=== PATIENT | male | born 1940 | race Caucasian/White ===

== ENCOUNTER → 2017-12-27 12:48 | Outpatient (CLI) | payer BC, MEDICARE, SELFPAY ==
--- NOTE | 2017-12-27 13:06 | PCM.CR.HP2 ---
CR - History & Physical - General Arrival date:: 12/27/17 Arrival time:: 13:06 Date of Admission: 11/10/17 Referring Physician: Dr. Finch/ Dr. Cummings Primary Diagnosis: Z95.1 11/10/2017 - History of Present Cardiac Event Onset Date: Enter Onset Date of cardiac illnesses in Comment field below Angina:: Yes [place]:: No CABG:: Yes PTCA:: No Valve Replacement/Repair:: Yes Pacemaker/ICD: No Were there any complications?: A-Fib - Medications Home Medications: Ambulatory Orders Medication Instructions Recorded Tamsulosin HCl [Flomax] 0.4 mg PO DAILY 01/12/14 Aspirin E.C. [Ecotrin] 81 mg PO DAILY@0800 10/08/17 Lisinopril [Zestril] 20 mg PO DAILY 10/08/17 warfarin 2 mg tablet 4 mg PO QDAY #60 tab 12/05/17 acetaminophen 325 mg tablet See Label Instructions PO Q4H PRN 12/23/17 tab atorvastatin 40 mg tablet 40 mg PO QHS tab 12/23/17 furosemide 20 mg tablet 20 mg PO QDAY 12/23/17 metoprolol tartrate 50 mg tablet 50 mg PO BID 12/23/17 potassium chloride 20 mEq oral 20 meq PO QDAY 12/23/17 packet - Allergies Allergies/Adverse Reactions: Allergies metoprolol [From Lopressor] Allergy (Verified 10/08/17 14:07) Unknown Penicillins Allergy (Verified 07/14/15 06:43) Rash Sulfa (Sulfonamide Antibiotics) Allergy (Verified 07/14/15 06:43) Unknown - Sleep Disorder Evaluation Hx of Sleep Apnea: No Do you snore loudly (louder than talking or can be heard through closed doors)?: Yes - Pt declines Do you often feel tired/ fatigued/ sleepy during daytime?: No Has anyone observed you stop breathing during sleep?: No History of Hypertension (for STOP score): Yes STOP Results: Positive Advanced Directives - Advanced Directives Power of Animal Behaviorist: Yes Living Will: Yes Advance Directives Information Provided: Yes Advance Directives on File: No DNR Order?:: No Past Medical History - Problems and Co-Morbidities Problems & Co-Morbidities: Hypertension - Past Medical Illness Other Medical Illnesses:: BPH - Past Cardiac Illness Past Cardiac Illness: Valve Disorders, Coronary Artery Disease, Coronary Artery Bypass Graft - Other Other: Vision/Eye Problems - Cardiology Procedures/Interventions Cardiology Procedures/Interventions: Heart Catheterization, Echocardiogram - Past Surgical History Surgical History: herniorrhaphy, total hip arthroplasty - Family History Summary Family History: Heart Disease: Paternal, Cancer: Maternal Review of Systems - Review of Systems Hints: Right click = Denies (Slash). Left click = Reports ([place]) Review of Present Symptoms: Reports: Angina, Fatigue, Heart Arrhythmia/Irregularities, Appetite - Normal, Sleep - Normal. Denies: Shortness of Breath at Rest, Shortness of Breath with Exertion, PVD, Operative Discomfort, Wound Healing, Dizziness/Lightheadedness, Appetite - Special Diet, Sexual Changes Risk Factor Assessment - Chief Complaint Chief Complaint: CP - Pulse Pulse Rate: 73 - 94 SPO2 Pulse Rhythm: Regular - Hypertension How long have you been treated?: 5 month Blood Pressure Sitting - Right Arm: 124/64 - Diabetes Nutrition Referral for Diabetes: No - Obesity Height: 1.85 m Weight:: 88.904 kg Weight in Pounds: 196.0 lbs Body Mass Index (BMI): 25.8 Nutritional Referral for Obesity: No - Physical Inactivity Physical Inactivity: Reg Exercise 30 min/day, Recreational activity - Risk Stratification Risk Guidelines: Moderate Risk: Risk Factor for Smoking, Risk Factor for Dyslipidemia, Risk Factor for Diabetes, Risk Factor for Obesity, Risk Factor for Hypertension, Risk Factor for Sedentary Lifestyle, Risk Factor for Depression - For Smoking Smoking Risk Guidelines: Smoking Low Risk: None or quit greater than 6 months ago. Smoking Moderate Risk: Smoker or quit 6 months or less ago. Smoking High Risk: Smoker - For Dyslipidemia Dyslipidemia Risk Guidelines: Low Risk: Moderate Risk: High Risk: 15-25% fat 25.1-29% fat >/= 30% fat. <7% sat fat 7-9% sat fat >9% sat fat. <150 mg chol 150-299 mg chol >/= 300 mg chol. LDL <100 LDL 100-129 LDL >/= 130. Chol/HDL ratio <5.0 Chol/HDL ratio 5.0-6.0 Chol/HDL ratio >6.0. Triglycerides <100 Triglycerides 100-149 Triglycerides >/= 150 - For Diabetes Mellitus Diabetes Risk Guidelines: Diabetes Low Risk: HgA1c <6.5% and/or FBG <120. Diabetes Moderate Risk: HgA1c 6.6-7.9% and/or FBG 120-180. Diabetes High Risk: HgA1c >/= 8% and/or FBG >180 - For Obesity/Overweight Obesity/Overweight Risk Guidelines: Obesity Low Risk: BMI <25.0. Obesity Moderate Risk: BMI 25-29.9. Obesity High Risk: BMI >/= 30.0 - For Hypertension Hypertension Risk Guidelines: Hypertension Low Risk: Systolic <120 and Diastolic <80. Hypertension Moderate Risk: Systolic 120-139 and Diastolic 80-89. Hypertension High Risk: Systolic >/= 140 and Diastolic >/= 90 - For Sedentary Lifestyle Sedentary Lifestyle Risk Guidelines: Sedentary Lifestyle Low Risk: >/= 1,500 kcal/week. Sedentary Lifestyle Moderate Risk: 700-1,499 kcal/week. Sedentary Lifestyle High Risk: < 700 kcal/week - For Depression Depression Risk Guidelines: Depression Low Risk: Not clinically depressed. Depression Moderate Risk: Mildly depressed. Depression High Risk: Clinically depressed Social History - Smoking History Smoking Status: Former smoker Hx Tobacco Use: Yes Hx Smoking Exposure: Yes - Alcohol Use Alcohol Usage: No - Substance Abuse Hx Substance Use: No - Occupation Occupation (List type of work in comments):: Retired - Hobbies, Recreation, Social Activities Hobbies: Farm, Reading Recreational Activities: I am able to engage in most, but not all activities Marital Status - Status Marital Status: - Current Living Arrangements Living Environment:: Family - Children How many children do you have?: 6 Do any of your children live nearby?: Yes - Safety Do you feel safe in your surroundings?: Yes - Assistance Do you need any assistance at home?: none
--- NOTE | 2017-12-27 13:16 | CR.ITP_ITS ---
Exercise - Initial Assessment - Visit Date of Eval: 12/27/17 - Stages of Change Stages of Change:: Contemplate - Exercise Prescription Mode:: Treadmill, Biodyne, Airdyne, NuStep, Arm Ergometer Angina with exercise?: No - Hypertension Do any of the following apply?: Yes Resting Blood Pressure:: 124/64 - Intervention Home Exercise/Activity Goal:: Sitting Time <3 hrs/day - Education Goals:: Warm-up, RPE AYLIN Scale, S/S, Safe Exercise, Self-Monitoring - Exercise Program Goals Exercise Program Goals: Aerobic Activity >30 min, B/P <140/90 Nutrition - Initial Assessment - Program Goals Nutrition Program Goals: LDL <70. Total Cholesterol <200. HDL >45. Triglycerides <150. HgbA1C <7%. BMI <25 - Visit Date of Assessment:: 12/27/17 - Stages of Change Stages of Change:: Contemplate - Diabetes Diabetes:: No - Weight Management Height: 1.85 m Weight:: 88.904 kg Total Score:: 3 - Intervention Referral to dietitian:: No Referral to Diabetic Clinic:: No Will attend diet classes:: Yes - Education Gave educational materials for:: Signs & symptoms of hypoglycemia, Signs & symptoms of hyperglycemia, Relate diabetes to coronary artery disease, Healthy eating Nutrition - 30-Day Assessment - Program Goals Nutrition Program Goals: LDL <70. Total Cholesterol <200. HDL >45. Triglycerides <150. HgbA1C <7%. BMI <25 - Diabetes Insulin: No Nutrition - 60-Day Assessment - Program Goals Nutrition Program Goals: LDL <70. Total Cholesterol <200. HDL >45. Triglycerides <150. HgbA1C <7%. BMI <25 - Diabetes Insulin: No Nutrition - 90-Day Assessment - Program Goals Nutrition Program Goals: LDL <70. Total Cholesterol <200. HDL >45. Triglycerides <150. HgbA1C <7%. BMI <25 - Diabetes Insulin: No Nutrition - Final Assessment - Program Goals Nutrition Program Goals: LDL <70. Total Cholesterol <200. HDL >45. Triglycerides <150. HgbA1C <7%. BMI <25 - Diabetes Insulin: No Tobacco - Initial Assessment - Program Goals Tobacco Program Goals: Complete smoking cessation. Attend education classes. Improve Knowledge Test score - Stage of Change Stages of Change:: Contemplate - Learning Barriers Learning Barriers: Hearing, Vision Total Score:: 4 - Family Support Do you have family support?: Yes - Tobacco Use Tobacco Use: Non-smoker How long ago did you quit using tobacco products?: Greater than or equal to 6 months ago Do you use smokeless tobacco?: No - Intervention Smoking Cessation Referral:: No Individual Education/Counseling:: No Education Schedule Given:: Yes - Education Gave educational material for:: Tobacco triggers, Coronary artery disease, Risk factors, Sexuality, Medical compliance, Cardiac A&P, Angina signs & symptoms Psychosocial - Initial Assess - Target Goals Target Goals: Assess presence or absence of depression. Using a valid screening tool, maximizes coping skills. Positive support system - Stages of Change Stages of Change:: Contemplate - Psychosocial Test Tool Used:: HANDS Depression Questionnaire Total Mood Screening Score:: 2 Self-Efficacy Score:: 8 - Intervention PS - Interventions: Yes Attend Stress Management Classes, Yes Uses Stress Management Skills, No Referral to Mental Health, No Referral to [facility] Case Management, No Referral to Physician - Education Gave educational materials for:: Coping techniques, Signs & symptoms of depression, Stress management, Relaxation techniques - Assistive Devices Assistive Devices:: None Fall Risk Assessed:: Yes Patient Health Questionnaire Initial Assessment 1. Little interest or pleasure in doing things: Not at all 2. Feeling down, depressed, or hopeless: Not at all 3. Trouble falling or staying asleep, or sleeping too much: Several days 4. Feeling tired or having little energy: Several days 5. Poor appetite or overeating: Not at all 6. Feeling bad about yourself -- or that you are a failure or have let yourself or your family down: Not at all 7. Trouble concentrating on things, such as reading the newspaper or watching television: Not at all 8. Moving or speaking so slowly that other people could have noticed. Or the opposite - being so fidgety or restless that you have been moving around a lot more than usual: Not at all 9. Thoughts that you would be better off , or of hurting yourself in some way: Not at all How difficult have these problems made it for you to do your work, take care of things at home, or get along with other people?: Not difficult at all Total Score: 2 Knowledge Test - Check your knowledge Initial The #1 cause of in the [place] each year is:: Heart disease Which of the following is a common treatment for heart disease?: Bypass surgery The arteries that feed the heart are called:: Coronary arteries HDL cholesterol is known as the good cholesterol.: True What disease increases your risk for heart disease?: Arthritis What food product raises blood cholesterol level the most?: Saturated fat The bad cholesterol in the blood is called:: HDL Hypertension is another word for:: High energy A blood pressure reading of 148/88 is considered normal.: True Exercise will only benefit your health when your heart rate reaches a target level.: True Total Score:: 4 Self-Efficacy Initial Assessment We would like to know how confident you are in doing certain activities. Please select your confidence level for:: Select your confidence level for the following using the scale 1-10 where 1 is not at all confident and 10 is totally confident. Your score is the average of all 6 responses. Fatigue: How confident are you that you can keep the fatigue caused by your disease from interfering with the things you want to do? Select Number: 5 Physical Discomfort or Pain: How confident are you that you can keep the physical discomfort or pain of your disease from interfering with the things you want to do? Select Number: 9 Emotional Distress: How confident are you that you can keep the emotional distress caused by your disease from interfering with the things you want to do? Select Number: 8 Other Symptoms or Health Problems: How confident are you that you can keep other symptoms or health problems from interfering with the things you want to do? Select Number: 9 Different Tasks and Activities: How confident are you that you can do the different tasks and activities needed to manage your health condition so as to reduce your need to see a doctor? Select Number: 9 Medication: How confident are you that you can do things other than just taking medication to reduce how much your illness affects your everyday life? Select Number: 8 Total Score:: 8 Nutrition Survey - Nutrition Survey Instructions Scoring Instructions: Scoring is as follows: Yes = 1 points. No = 0 point. Patient score that is >/=12 is considered to be at potential nutritional risk and could benefit from a referral to a registered dietitian. - Nutrition Survey Initial Have you lost >10 lbs over the past 2 months without trying?: No Are you following a special diet at home for diabetes, low fat, or low salt?: Yes Are you interested in meeting with a dietitian for help understanding your diet? : No Do you eat less than 3 meals a day?: No Do you eat fatty meats (deleon, sausage, ribs, etc), fried foods, desserts, large amounts of salad dressings, margarine, butter, or cheese most days?: No Do you have food allergies? [Enter types in comment field]: No Do you eat in restaurants more than 3 times a week?: No Do you season food with salt, seasoning salt, or garlic salt?: Yes Do you used canned, boxed, frozen meals, or soups, seasoning packets?: Yes Total Score:: 3 Cardiac Rehabilitation Goals - Cardiac Rehab Goals Cardiac Rehabilitation Goals: 1. Maintain the individual as the primary focus of care. 2. To improve the patient's quality of life. 3. Identification of cardiac risk factors and provide cardiac risk factor management. 4. Enhance the psychosocial status of the patient. 5. Reconditioning enough to allow the patient to resume customary activities. 6. Control symptoms of cardiac disease - Scale Scale for measuring improvement of personal goals: Enter appropriate number in Comments. 2 = Unchanged. 3 = Slightly Better. 4 = Moderate Improvement. 5 = Met my Goal Initial Assessment Personal Goals: 30-day Re-assessment: Improve energy level, Participate in home exercise program, Get back to work, or to resume activities faster, Improve muscle strength and endurance
--- NOTE | 2017-12-27 13:16 | CR.HP_ITS ---
CR - History & Physical - General Arrival date:: 12/27/17 Arrival time:: 13:06 Date of Admission: 11/10/17 Referring Physician: Dr. Finch/ Dr. Cummings Primary Diagnosis: Z95.1 11/10/2017 - History of Present Cardiac Event Onset Date: Enter Onset Date of cardiac illnesses in Comment field below Angina:: Yes [place]:: No CABG:: Yes PTCA:: No Valve Replacement/Repair:: Yes Pacemaker/ICD: No Were there any complications?: A-Fib - Medications Home Medications: Ambulatory Orders Medication Instructions Recorded Tamsulosin HCl [Flomax] 0.4 mg PO DAILY 01/12/14 Aspirin E.C. [Ecotrin] 81 mg PO DAILY@0800 10/08/17 Lisinopril [Zestril] 20 mg PO DAILY 10/08/17 warfarin 2 mg tablet 4 mg PO QDAY #60 tab 12/05/17 acetaminophen 325 mg tablet See Label Instructions PO Q4H PRN 12/23/17 tab atorvastatin 40 mg tablet 40 mg PO QHS tab 12/23/17 furosemide 20 mg tablet 20 mg PO QDAY 12/23/17 metoprolol tartrate 50 mg tablet 50 mg PO BID 12/23/17 potassium chloride 20 mEq oral 20 meq PO QDAY 12/23/17 packet - Allergies Allergies/Adverse Reactions: Allergies metoprolol [From Lopressor] Allergy (Verified 10/08/17 14:07) Unknown Penicillins Allergy (Verified 07/14/15 06:43) Rash Sulfa (Sulfonamide Antibiotics) Allergy (Verified 07/14/15 06:43) Unknown - Sleep Disorder Evaluation Hx of Sleep Apnea: No Do you snore loudly (louder than talking or can be heard through closed doors)? : Yes - Pt declines Do you often feel tired/ fatigued/ sleepy during daytime?: No Has anyone observed you stop breathing during sleep?: No History of Hypertension (for STOP score): Yes STOP Results: Positive Advanced Directives - Advanced Directives Power of Medical Cash Poster: Yes Living Will: Yes Advance Directives Information Provided: Yes Advance Directives on File: No DNR Order?:: No Past Medical History - Problems and Co-Morbidities Problems & Co-Morbidities: Hypertension - Past Medical Illness Other Medical Illnesses:: BPH - Past Cardiac Illness Past Cardiac Illness: Valve Disorders, Coronary Artery Disease, Coronary Artery Bypass Graft - Other Other: Vision/Eye Problems - Cardiology Procedures/Interventions Cardiology Procedures/Interventions: Heart Catheterization, Echocardiogram - Past Surgical History Surgical History: herniorrhaphy, total hip arthroplasty - Family History Summary Family History: Heart Disease: Paternal, Cancer: Maternal Review of Systems - Review of Systems Hints: Right click = Denies ([place]). Left click = Reports ([place]) Review of Present Symptoms: Reports: Angina, Fatigue, Heart Arrhythmia/ Irregularities, Appetite - Normal, Sleep - Normal. Denies: Shortness of Breath at Rest, Shortness of Breath with Exertion, PVD, Operative Discomfort, Wound Healing, Dizziness/Lightheadedness, Appetite - Special Diet, Sexual Changes Risk Factor Assessment - Chief Complaint Chief Complaint: CP - Pulse Pulse Rate: 73 - 94 SPO2 Pulse Rhythm: Regular - Hypertension How long have you been treated?: 5 month Blood Pressure Sitting - Right Arm: 124/64 - Diabetes Nutrition Referral for Diabetes: No - Obesity Height: 1.85 m Weight:: 88.904 kg Weight in Pounds: 196.0 lbs Body Mass Index (BMI): 25.8 Nutritional Referral for Obesity: No - Physical Inactivity Physical Inactivity: Reg Exercise 30 min/day, Recreational activity - Risk Stratification Risk Guidelines: Moderate Risk: Risk Factor for Smoking, Risk Factor for Dyslipidemia, Risk Factor for Diabetes, Risk Factor for Obesity, Risk Factor for Hypertension, Risk Factor for Sedentary Lifestyle, Risk Factor for Depression - For Smoking Smoking Risk Guidelines: Smoking Low Risk: None or quit greater than 6 months ago. Smoking Moderate Risk: Smoker or quit 6 months or less ago. Smoking High Risk: Smoker - For Dyslipidemia Dyslipidemia Risk Guidelines: Low Risk: Moderate Risk: High Risk: 15-25% fat 25.1-29% fat >/= 30% fat. <7% sat fat 7-9% sat fat >9% sat fat. <150 mg chol 150-299 mg chol >/= 300 mg chol. LDL <100 LDL 100-129 LDL >/= 130. Chol/HDL ratio <5.0 Chol/HDL ratio 5.0-6.0 Chol/HDL ratio >6.0. Triglycerides <100 Triglycerides 100-149 Triglycerides >/= 150 - For Diabetes Mellitus Diabetes Risk Guidelines: Diabetes Low Risk: HgA1c <6.5% and/or FBG <120. Diabetes Moderate Risk: HgA1c 6.6-7.9% and/or FBG 120-180. Diabetes High Risk: HgA1c >/= 8% and/or FBG >180 - For Obesity/Overweight Obesity/Overweight Risk Guidelines: Obesity Low Risk: BMI <25.0. Obesity Moderate Risk: BMI 25-29.9. Obesity High Risk: BMI >/= 30.0 - For Hypertension Hypertension Risk Guidelines: Hypertension Low Risk: Systolic <120 and Diastolic <80. Hypertension Moderate Risk: Systolic 120-139 and Diastolic 80-89. Hypertension High Risk: Systolic >/= 140 and Diastolic >/= 90 - For Sedentary Lifestyle Sedentary Lifestyle Risk Guidelines: Sedentary Lifestyle Low Risk: >/= 1 ,500 kcal/week. Sedentary Lifestyle Moderate Risk: 700-1,499 kcal/week. Sedentary Lifestyle High Risk: < 700 kcal/week - For Depression Depression Risk Guidelines: Depression Low Risk: Not clinically depressed. Depression Moderate Risk: Mildly depressed. Depression High Risk: Clinically depressed Social History - Smoking History Smoking Status: Former smoker Hx Tobacco Use: Yes Hx Smoking Exposure: Yes - Alcohol Use Alcohol Usage: No - Substance Abuse Hx Substance Use: No - Occupation Occupation (List type of work in comments):: Retired - Hobbies, Recreation, Social Activities Hobbies: Farm, Reading Recreational Activities: I am able to engage in most, but not all activities Marital Status - Status Marital Status: - Current Living Arrangements Living Environment:: Family - Children How many children do you have?: 6 Do any of your children live nearby?: Yes - Safety Do you feel safe in your surroundings?: Yes - Assistance Do you need any assistance at home?: none
[2017-12-27 14:02] VITALS: BP 124/64
[2017-12-27 14:04] VITALS: BP 124/64; PULSE 73; BMI 25.8
== END ==
PROVIDERS: Family Provider Family Medicine; PCP Family Medicine; Visit Provider Thoracic Surgery (Cardiothoracic Vascular Surgery)
DX: Z95.1 Presence of aortocoronary bypass graft (principal)

== ENCOUNTER 2018-01-22 13:00 | Outpatient (RCR) | payer MEDICARE, BC, SELFPAY ==
[2017-12-27 14:04] VITALS: BMI 25.8
--- NOTE | 2018-01-21 13:02 | PCM.CR.ITP ---
Exercise - Initial Assessment - Stages of Change Stages of Change:: Contemplate - Exercise Prescription Mode:: Treadmill, Biodyne, Airdyne, NuStep, Arm Ergometer Angina with exercise?: No - Hypertension Do any of the following apply?: Yes - Intervention Home Exercise/Activity Goal:: Sitting Time <3 hrs/day - Education Goals:: Warm-up, RPE AYLIN Scale, S/S, Safe Exercise, Self-Monitoring - Exercise Program Goals Exercise Program Goals: Aerobic Activity >30 min, B/P <140/90 Exercise - 30-day Assessment - Visit Date of Eval: 01/21/18 Session #:: 6 - Stages of Change Stages of Change:: Action - Exercise Prescription Mode:: Treadmill, Airdyne, NuStep Frequency (x/week): 3 Duration:: 30 METs - Progression: 0.5-1 MET as tolerated: 3 Target Heart Rate:: 98-106 w/ max HR 86 - Hypertension Resting Blood Pressure:: 146/84 Peak Exercise Blood Pressure:: 168/80 Medication Changes:: No - Intervention Home Exercise/Activity Goal:: Moderate Exercise 30 min/day x 5 days/wk - Education Goals:: Warm-up, RPE AYLIN Scale, S/S, Safe Exercise, Self-Monitoring - Exercise Program Goals Exercise Program Goals: Aerobic Activity >30 min Exercise - Final/Discharge - Hypertension Do any of the following apply?: Yes Nutrition - Initial Assessment - Program Goals Nutrition Program Goals: LDL <70. Total Cholesterol <200. HDL >45. Triglycerides <150. HgbA1C <7%. BMI <25 - Stages of Change Stages of Change:: Contemplate - Diabetes Diabetes:: No - Weight Management Total Score:: 3 - Intervention Referral to dietitian:: No Referral to Diabetic Clinic:: No Will attend diet classes:: Yes - Education Gave educational materials for:: Signs & symptoms of hypoglycemia, Signs & symptoms of hyperglycemia, Relate diabetes to coronary artery disease, Healthy eating Nutrition - 30-Day Assessment - Program Goals Nutrition Program Goals: LDL <70. Total Cholesterol <200. HDL >45. Triglycerides <150. HgbA1C <7%. BMI <25 - Visit Date of Eval: 01/21/18 - Stages of Change Stages of Change:: Action - Lipids Has the patient seen the dietitian?: No - Diabetes Diabetes:: No Insulin: No Non-Insulin Dependent?: No - Weight Management Weight:: 194 lb - Intervention Referral to dietitian:: No Referral to Diabetic Clinic:: No Will attend diet classes:: Yes - Education Attended class for:: Healthy eating Nutrition - 60-Day Assessment - Program Goals Nutrition Program Goals: LDL <70. Total Cholesterol <200. HDL >45. Triglycerides <150. HgbA1C <7%. BMI <25 - Diabetes Diabetes:: No Insulin: No - Intervention Referral to dietitian:: No Referral to Diabetic Clinic:: No Will attend diet classes:: Yes - Education Attended class for:: Signs & symptoms of hypoglycemia, Signs & symptoms of hyperglycemia, Relate diabetes to coronary artery disease, Healthy eating Nutrition - 90-Day Assessment - Program Goals Nutrition Program Goals: LDL <70. Total Cholesterol <200. HDL >45. Triglycerides <150. HgbA1C <7%. BMI <25 - Diabetes Diabetes:: No Insulin: No - Intervention Referral to dietitian:: No Referral to Diabetic Clinic:: No Will attend diet classes:: Yes - Education Attended class for:: Signs & symptoms of hypoglycemia, Signs & symptoms of hyperglycemia, Relate diabetes to coronary artery disease, Healthy eating Nutrition - Final Assessment - Program Goals Nutrition Program Goals: LDL <70. Total Cholesterol <200. HDL >45. Triglycerides <150. HgbA1C <7%. BMI <25 - Diabetes Diabetes:: No Insulin: No - Weight Management Total Score:: 3 - Intervention Referral to dietitian:: No Referral to Diabetic Clinic:: No Will attend diet classes:: Yes Tobacco - Initial Assessment - Program Goals Tobacco Program Goals: Complete smoking cessation. Attend education classes. Improve Knowledge Test score - Stage of Change Stages of Change:: Contemplate - Learning Barriers Learning Barriers: Hearing, Vision Total Score:: 4 - Family Support Do you have family support?: Yes - Tobacco Use Tobacco Use: Non-smoker How long ago did you quit using tobacco products?: Greater than or equal to 6 months ago Do you use smokeless tobacco?: No - Intervention Smoking Cessation Referral:: No Individual Education/Counseling:: No Education Schedule Given:: Yes - Education Gave educational material for:: Tobacco triggers, Coronary artery disease, Risk factors, Sexuality, Medical compliance, Cardiac A&P, Angina signs & symptoms Tobacco - 30-Day Assessment - Program Goals Tobacco Program Goals: Complete smoking cessation. Attend education classes. Improve Knowledge Test score - Stage of Change Stages of Change:: Action - Learning Barriers Learning Barriers: Participates in education - Family Support Do you have family support?: Yes - Tobacco Use Tobacco Use: Non-smoker Do you use smokeless tobacco?: No - Intervention Smoking Cessation Referral:: No Individual Education/Counseling:: No Education Schedule Given:: Yes - Education Attended class for:: Coronary artery disease, Risk factors, Sexuality, Medical compliance, Cardiac A&P, Angina signs & symptoms Tobacco - 60-Day Assessment - Program Goals Tobacco Program Goals: Complete smoking cessation. Attend education classes. Improve Knowledge Test score - Family Support Do you have family support?: Yes - Tobacco Use Do you use smokeless tobacco?: No - Intervention Smoking Cessation Referral:: No Individual Education/Counseling:: No Education Schedule Given:: Yes - Education Attended class for:: Tobacco triggers, Coronary artery disease, Risk factors, Sexuality, Medical compliance, Cardiac A&P, Angina signs & symptoms Tobacco - 90-Day Assessment - Program Goals Tobacco Program Goals: Complete smoking cessation. Attend education classes. Improve Knowledge Test score - Family Support Do you have family support?: Yes - Tobacco Use Do you use smokeless tobacco?: No - Intervention Smoking Cessation Referral:: No Individual Education/Counseling:: No Education Schedule Given:: Yes - Education Attended class for:: Tobacco triggers, Coronary artery disease, Risk factors, Sexuality, Medical compliance, Cardiac A&P, Angina signs & symptoms Tobacco - Final Assessment - Program Goals Tobacco Program Goals: Complete smoking cessation. Attend education classes. Improve Knowledge Test score - Learning Barriers Cardiac Knowledge Test Score:: 4 - Family Support Do you have family support?: Yes - Tobacco Use Do you use smokeless tobacco?: No - Intervention Smoking Cessation Referral:: No Individual Education/Counseling:: No Education Schedule Given:: Yes Psychosocial - Initial Assess - Target Goals Target Goals: Assess presence or absence of depression. Using a valid screening tool, maximizes coping skills. Positive support system - Stages of Change Stages of Change:: Contemplate - Psychosocial Test Tool Used:: HANDS Depression Questionnaire Total Mood Screening Score:: 2 Self-Efficacy Score:: 8 - Intervention PS - Interventions: Yes Attend Stress Management Classes, Yes Uses Stress Management Skills, No Referral to Mental Health, No Referral to [facility] Case Management, No Referral to Physician - Education Gave educational materials for:: Coping techniques, Signs & symptoms of depression, Stress management, Relaxation techniques - Assistive Devices Assistive Devices:: None Fall Risk Assessed:: Yes Psychosocial - 30-Day Assess - Target Goals Target Goals: Assess presence or absence of depression. Using a valid screening tool, maximizes coping skills. Positive support system - Stages of Change Stages of Change:: Action - Psychosocial Test Tool Used:: HANDS Depression Questionnaire Total Mood Screening Score:: 2 Self-Efficacy Score:: 8 - Intervention PS - Interventions: Yes Attend Stress Management Classes, Yes Uses Stress Management Skills, No Referral to Mental Health, No Referral to [facility] Case Management, No Referral to Physician - Education Attended classes for:: Coping techniques, Signs & symptoms of depression, Stress management, Relaxation techniques - Patient/Program Goal Preventative Medication(s):: Aspirin, Clopidogrel, Statin/lipid - Assistive Devices Assistive Devices:: None Fall Risk Assessed:: Yes Psychosocial - 60-Day Assess - Target Goals Target Goals: Assess presence or absence of depression. Using a valid screening tool, maximizes coping skills. Positive support system - Psychosocial Test Tool Used:: HANDS Depression Questionnaire Total Mood Screening Score:: 2 Self-Efficacy Score:: 8 - Education Attended classes for:: Coping techniques, Signs & symptoms of depression, Stress management, Relaxation techniques - Assistive Devices Assistive Devices:: None Fall Risk Assessed:: Yes Psychosocial - 90-Day Assess - Target Goals Target Goals: Assess presence or absence of depression. Using a valid screening tool, maximizes coping skills. Positive support system - Psychosocial Test Tool Used:: HANDS Depression Questionnaire Total Mood Screening Score:: 2 Self-Efficacy Score:: 8 - Education Attended classes for:: Coping techniques, Signs & symptoms of depression, Stress management, Relaxation techniques - Assistive Devices Assistive Devices:: None Fall Risk Assessed:: Yes Psychosocial - Final Assessmen - Target Goals Target Goals: Assess presence or absence of depression. Using a valid screening tool, maximizes coping skills. Positive support system - Psychosocial Test Tool Used:: HANDS Depression Questionnaire Total Mood Screening Score:: 2 Self-Efficacy Score:: 8 - Assistive Devices Assistive Devices:: None Fall Risk Assessed:: Yes Patient Health Questionnaire 30-Day Re-eval Assessment 1. Little interest or pleasure in doing things: Not at all 2. Feeling down, depressed, or hopeless: Not at all 3. Trouble falling or staying asleep, or sleeping too much: Several days 4. Feeling tired or having little energy: Not at all 5. Poor appetite or overeating: Not at all 6. Feeling bad about yourself -- or that you are a failure or have let yourself or your family down: Not at all 7. Trouble concentrating on things, such as reading the newspaper or watching television: Not at all 8. Moving or speaking so slowly that other people could have noticed. Or the opposite - being so fidgety or restless that you have been moving around a lot more than usual: Not at all 9. Thoughts that you would be better off , or of hurting yourself in some way: Not at all How difficult have these problems made it for you to do your work, take care of things at home, or get along with other people?: Not difficult at all Total Score: 1 Self-Efficacy 30-Day Re-eval Assessment We would like to know how confident you are in doing certain activities. Please select your confidence level for:: Select your confidence level for the following using the scale 1-10 where 1 is not at all confident and 10 is totally confident. Your score is the average of all 6 responses. Fatigue: How confident are you that you can keep the fatigue caused by your disease from interfering with the things you want to do? Select Number: 6 Physical Discomfort or Pain: How confident are you that you can keep the physical discomfort or pain of your disease from interfering with the things you want to do? Select Number: 10 Emotional Distress: How confident are you that you can keep the emotional distress caused by your disease from interfering with the things you want to do? Select Number: 9 Other Symptoms or Health Problems: How confident are you that you can keep other symptoms or health problems from interfering with the things you want to do? Select Number: 10 Different Tasks and Activities: How confident are you that you can do the different tasks and activities needed to manage your health condition so as to reduce your need to see a doctor? Select Number: 10 Medication: How confident are you that you can do things other than just taking medication to reduce how much your illness affects your everyday life? Select Number: 9 Total Score:: 9
[2018-01-21 13:09] VITALS: BP 146/84; BP 168/80
== END 2018-01-22 23:59 ==
LOC: CR 13:00
PROVIDERS: Family Provider Family Medicine; PCP Family Medicine; Visit Provider Thoracic Surgery (Cardiothoracic Vascular Surgery)
DX: Z95.1 Presence of aortocoronary bypass graft (principal)
CPT/HCPCS: 93798

== ENCOUNTER 2018-02-21 13:00 | Outpatient (RCR) | payer MEDICARE, BC, SELFPAY ==
[2018-01-23 01:02] VITALS: BP 146/84; BP 168/80; BMI 25.8
--- NOTE | 2018-02-17 10:37 | PCM.CR.ITP ---
Exercise - Initial Assessment - Stages of Change Stages of Change:: Contemplate - Exercise Prescription Mode:: Treadmill, Biodyne, Airdyne, NuStep, Arm Ergometer Angina with exercise?: No - Hypertension Do any of the following apply?: Yes - Intervention Home Exercise/Activity Goal:: Sitting Time <3 hrs/day - Education Goals:: Warm-up, RPE AYLIN Scale, S/S, Safe Exercise, Self-Monitoring - Exercise Program Goals Exercise Program Goals: Aerobic Activity >30 min, B/P <140/90 Exercise - 30-day Assessment - Visit Date of Eval: 01/21/18 - Stages of Change Stages of Change:: Action - Exercise Prescription Mode:: Treadmill, Airdyne, NuStep Frequency (x/week): 3 Duration:: 30 METs - Progression: 0.5-1 MET as tolerated: 3 Target Heart Rate:: 98-106 w/ max HR 86 - Intervention Home Exercise/Activity Goal:: Moderate Exercise 30 min/day x 5 days/wk - Education Goals:: Warm-up, RPE AYLIN Scale, S/S, Safe Exercise, Self-Monitoring - Exercise Program Goals Exercise Program Goals: Aerobic Activity >30 min Exercise - 60-Day Assessment - Visit Date of Eval: 02/17/18 - 01/15/2018-02/14/2018 Session #:: 16 - Stages of Change Stages of Change:: Action - Exercise Prescription Mode:: Biodyne, NuStep Frequency (x/week): 3 Duration:: 30 METs: 4 Target Heart Rate:: 98-106 Max HR 80 - Hypertension Resting Blood Pressure:: 154/84 Peak Exercise Blood Pressure:: 188/104 Medication Changes:: No - Intervention Home Exercise/Activity Goal:: Sitting Time <3 hrs/day - Education Goals:: Warm-up, RPE AYLIN Scale, S/S, Safe Exercise, Self-Monitoring - Exercise Program Goals Exercise Program Goals: Aerobic Activity >30 min, B/P <140/90 Exercise - Final/Discharge - Hypertension Do any of the following apply?: Yes Nutrition - Initial Assessment - Program Goals Nutrition Program Goals: LDL <70. Total Cholesterol <200. HDL >45. Triglycerides <150. HgbA1C <7%. BMI <25 - Stages of Change Stages of Change:: Contemplate - Diabetes Diabetes:: No Non-Insulin Dependent?: No - Weight Management Total Score:: 3 - Intervention Referral to dietitian:: No Referral to Diabetic Clinic:: No Will attend diet classes:: Yes - Education Gave educational materials for:: Signs & symptoms of hypoglycemia, Signs & symptoms of hyperglycemia, Relate diabetes to coronary artery disease, Healthy eating Nutrition - 30-Day Assessment - Program Goals Nutrition Program Goals: LDL <70. Total Cholesterol <200. HDL >45. Triglycerides <150. HgbA1C <7%. BMI <25 - Stages of Change Stages of Change:: Action - Lipids Has the patient seen the dietitian?: No - Diabetes Diabetes:: No Non-Insulin Dependent?: No - Intervention Referral to dietitian:: No Referral to Diabetic Clinic:: No Will attend diet classes:: Yes - Education Attended class for:: Signs & symptoms of hypoglycemia, Signs & symptoms of hyperglycemia, Relate diabetes to coronary artery disease, Healthy eating Nutrition - 60-Day Assessment - Program Goals Nutrition Program Goals: LDL <70. Total Cholesterol <200. HDL >45. Triglycerides <150. HgbA1C <7%. BMI <25 - Visit Date of Eval: 02/17/18 - 01/15/2018-02/14/2018 - Stages of Change Stages of Change:: Action - Lipids Has the patient seen the dietitian?: No - Diabetes Diabetes:: No Non-Insulin Dependent?: No - Weight Management Weight:: 89.358 kg - Intervention Referral to dietitian:: No Referral to Diabetic Clinic:: No Will attend diet classes:: Yes - Education Attended class for:: Signs & symptoms of hypoglycemia, Signs & symptoms of hyperglycemia, Relate diabetes to coronary artery disease, Healthy eating Nutrition - 90-Day Assessment - Program Goals Nutrition Program Goals: LDL <70. Total Cholesterol <200. HDL >45. Triglycerides <150. HgbA1C <7%. BMI <25 - Lipids Has the patient seen the dietitian?: No - Diabetes Diabetes:: No Non-Insulin Dependent?: No - Intervention Referral to dietitian:: No Referral to Diabetic Clinic:: No Will attend diet classes:: Yes - Education Attended class for:: Signs & symptoms of hypoglycemia, Signs & symptoms of hyperglycemia, Relate diabetes to coronary artery disease, Healthy eating Nutrition - Final Assessment - Program Goals Nutrition Program Goals: LDL <70. Total Cholesterol <200. HDL >45. Triglycerides <150. HgbA1C <7%. BMI <25 - Diabetes Diabetes:: No Non-Insulin Dependent?: No - Weight Management Total Score:: 3 - Intervention Referral to dietitian:: No Referral to Diabetic Clinic:: No Will attend diet classes:: Yes Tobacco - Initial Assessment - Program Goals Tobacco Program Goals: Complete smoking cessation. Attend education classes. Improve Knowledge Test score - Stage of Change Stages of Change:: Contemplate - Learning Barriers Learning Barriers: Hearing, Vision Total Score:: 4 - Family Support Do you have family support?: Yes - Tobacco Use Tobacco Use: Non-smoker How long ago did you quit using tobacco products?: Greater than or equal to 6 months ago Do you use smokeless tobacco?: No - Intervention Smoking Cessation Referral:: No Individual Education/Counseling:: No Education Schedule Given:: Yes - Education Gave educational material for:: Tobacco triggers, Coronary artery disease, Risk factors, Sexuality, Medical compliance, Cardiac A&P, Angina signs & symptoms Tobacco - 30-Day Assessment - Program Goals Tobacco Program Goals: Complete smoking cessation. Attend education classes. Improve Knowledge Test score - Stage of Change Stages of Change:: Action - Learning Barriers Learning Barriers: Participates in education - Family Support Do you have family support?: Yes - Tobacco Use Tobacco Use: Non-smoker Do you use smokeless tobacco?: No - Intervention Smoking Cessation Referral:: No Individual Education/Counseling:: No Education Schedule Given:: Yes - Education Attended class for:: Tobacco triggers, Coronary artery disease, Risk factors, Sexuality, Medical compliance, Cardiac A&P, Angina signs & symptoms Tobacco - 60-Day Assessment - Program Goals Tobacco Program Goals: Complete smoking cessation. Attend education classes. Improve Knowledge Test score - Stage of Change Stages of Change:: Action - Learning Barriers Learning Barriers: Participates in education - Family Support Do you have family support?: Yes - Tobacco Use Tobacco Use: Non-smoker Do you use smokeless tobacco?: No - Intervention Smoking Cessation Referral:: No Individual Education/Counseling:: No Education Schedule Given:: Yes - Education Attended class for:: Tobacco triggers, Coronary artery disease, Risk factors, Sexuality, Medical compliance, Cardiac A&P, Angina signs & symptoms Tobacco - 90-Day Assessment - Program Goals Tobacco Program Goals: Complete smoking cessation. Attend education classes. Improve Knowledge Test score - Family Support Do you have family support?: Yes - Tobacco Use Tobacco Use: Non-smoker Do you use smokeless tobacco?: No - Intervention Smoking Cessation Referral:: No Individual Education/Counseling:: No Education Schedule Given:: Yes - Education Attended class for:: Tobacco triggers, Coronary artery disease, Risk factors, Sexuality, Medical compliance, Cardiac A&P, Angina signs & symptoms Tobacco - Final Assessment - Program Goals Tobacco Program Goals: Complete smoking cessation. Attend education classes. Improve Knowledge Test score - Learning Barriers Cardiac Knowledge Test Score:: 4 - Family Support Do you have family support?: Yes - Tobacco Use Tobacco Use: Non-smoker Do you use smokeless tobacco?: No - Intervention Smoking Cessation Referral:: No Individual Education/Counseling:: No Education Schedule Given:: Yes Psychosocial - Initial Assess - Target Goals Target Goals: Assess presence or absence of depression. Using a valid screening tool, maximizes coping skills. Positive support system - Stages of Change Stages of Change:: Contemplate - Psychosocial Test Tool Used:: HANDS Depression Questionnaire Total Mood Screening Score:: 2 Self-Efficacy Score:: 8 - Education Gave educational materials for:: Coping techniques, Signs & symptoms of depression, Stress management, Relaxation techniques - Patient/Program Goal Preventative Medication(s):: Aspirin, Clopidogrel, Statin/lipid - Assistive Devices Assistive Devices:: None Fall Risk Assessed:: Yes Psychosocial - 30-Day Assess - Target Goals Target Goals: Assess presence or absence of depression. Using a valid screening tool, maximizes coping skills. Positive support system - Stages of Change Stages of Change:: Action - Psychosocial Test Tool Used:: HANDS Depression Questionnaire Total Mood Screening Score:: 2 Self-Efficacy Score:: 8 - Patient/Program Goal Preventative Medication(s):: Aspirin, Clopidogrel, Statin/lipid - Assistive Devices Assistive Devices:: None Fall Risk Assessed:: Yes Psychosocial - 60-Day Assess - Target Goals Target Goals: Assess presence or absence of depression. Using a valid screening tool, maximizes coping skills. Positive support system - Stages of Change Stages of Change:: Action - Psychosocial Test Tool Used:: HANDS Depression Questionnaire Total Mood Screening Score:: 2 Self-Efficacy Score:: 8 - Intervention PS - Interventions: Yes Attend Stress Management Classes, Yes Uses Stress Management Skills, No Referral to Mental Health, No Referral to [facility] Case Management, No Referral to Physician - Education Attended classes for:: Coping techniques, Signs & symptoms of depression, Stress management, Relaxation techniques - Patient/Program Goal Preventative Medication(s):: Aspirin, Clopidogrel, Statin/lipid - Assistive Devices Assistive Devices:: None Fall Risk Assessed:: Yes Psychosocial - 90-Day Assess - Target Goals Target Goals: Assess presence or absence of depression. Using a valid screening tool, maximizes coping skills. Positive support system - Psychosocial Test Tool Used:: HANDS Depression Questionnaire Total Mood Screening Score:: 2 Self-Efficacy Score:: 8 - Education Attended classes for:: Coping techniques, Signs & symptoms of depression, Stress management, Relaxation techniques - Patient/Program Goal Preventative Medication(s):: Aspirin, Clopidogrel, Statin/lipid - Assistive Devices Assistive Devices:: None Fall Risk Assessed:: Yes Psychosocial - Final Assessmen - Target Goals Target Goals: Assess presence or absence of depression. Using a valid screening tool, maximizes coping skills. Positive support system - Psychosocial Test Tool Used:: HANDS Depression Questionnaire Total Mood Screening Score:: 2 Self-Efficacy Score:: 8 - Patient/Program Goal Preventative Medication(s):: Aspirin, Clopidogrel, Statin/lipid - Assistive Devices Assistive Devices:: None Fall Risk Assessed:: Yes Patient Health Questionnaire 60-Day Re-eval Assessment 1. Little interest or pleasure in doing things: Not at all 2. Feeling down, depressed, or hopeless: Not at all 3. Trouble falling or staying asleep, or sleeping too much: Not at all 4. Feeling tired or having little energy: Several days 5. Poor appetite or overeating: Not at all 6. Feeling bad about yourself -- or that you are a failure or have let yourself or your family down: Not at all 7. Trouble concentrating on things, such as reading the newspaper or watching television: Not at all 8. Moving or speaking so slowly that other people could have noticed. Or the opposite - being so fidgety or restless that you have been moving around a lot more than usual: Not at all 9. Thoughts that you would be better off , or of hurting yourself in some way: Not at all How difficult have these problems made it for you to do your work, take care of things at home, or get along with other people?: Not difficult at all Total Score: 1 Self-Efficacy 60-Day Re-eval Assessment We would like to know how confident you are in doing certain activities. Please select your confidence level for:: Select your confidence level for the following using the scale 1-10 where 1 is not at all confident and 10 is totally confident. Your score is the average of all 6 responses. Fatigue: How confident are you that you can keep the fatigue caused by your disease from interfering with the things you want to do? Select Number: 9 Physical Discomfort or Pain: How confident are you that you can keep the physical discomfort or pain of your disease from interfering with the things you want to do? Select Number: 9 Emotional Distress: How confident are you that you can keep the emotional distress caused by your disease from interfering with the things you want to do? Select Number: 9 Other Symptoms or Health Problems: How confident are you that you can keep other symptoms or health problems from interfering with the things you want to do? Select Number: 9 Different Tasks and Activities: How confident are you that you can do the different tasks and activities needed to manage your health condition so as to reduce your need to see a doctor? Select Number: 9 Medication: How confident are you that you can do things other than just taking medication to reduce how much your illness affects your everyday life? Select Number: 9 Total Score:: 9 Cardiac Rehabilitation Goals - Cardiac Rehab Goals Cardiac Rehabilitation Goals: 1. Maintain the individual as the primary focus of care. 2. To improve the patient's quality of life. 3. Identification of cardiac risk factors and provide cardiac risk factor management. 4. Enhance the psychosocial status of the patient. 5. Reconditioning enough to allow the patient to resume customary activities. 6. Control symptoms of cardiac disease - Scale Scale for measuring improvement of personal goals: Enter appropriate number in Comments. 2 = Unchanged. 3 = Slightly Better. 4 = Moderate Improvement. 5 = Met my Goal 60-Day Re-eval Assessment Personal Goals: 60-day Re-assessment: Improve energy level, Participate in home exercise program, Get back to work, or to resume activities faster, Improve muscle strength and endurance
[2018-02-17 10:41] VITALS: BP 154/84; BP 188/104
== END 2018-02-22 23:59 ==
LOC: CR 13:00
PROVIDERS: Family Provider Family Medicine; PCP Family Medicine; Visit Provider Thoracic Surgery (Cardiothoracic Vascular Surgery)
DX: Z95.1 Presence of aortocoronary bypass graft (principal)
CPT/HCPCS: 93798

== ENCOUNTER → 2018-03-10 12:38 | Outpatient (CLI) | payer MEDICARE, BC, SELFPAY ==
[2018-03-10 13:26] LABS: BUN 27 mg/dL (7-18); Creatinine, Serum 1.06 mg/dL (0.70-1.30); Glucose 86 mg/dL (74-106)
[2018-03-10 13:27] LABS: Anion Gap 1 (5-15); BUN/Creat Ratio 25.5 RATIO (10-20); Calcium,Total 8.9 mg/dL (8.5-10.1); Chloride 106 mmol/L (98-107); EST Glomerular Filtration Rate 72 mL/min (>60); Est Glom Filt Rate - Afr Amer 87 mL/min (>60); Potassium 4.6 mmol/L (3.5-5.1); Sodium Level 140 mmol/L (136-145)
== END ==
PROVIDERS: Family Provider Family Medicine; PCP Family Medicine; Visit Provider Physician Assistant Medical
DX: I35.0 Nonrheumatic aortic (valve) stenosis (principal); I10 Essential (primary) hypertension; I97.89 Other postprocedural complications and disorders of the circulatory system, not elsewhere classified; I48.91 Unspecified atrial fibrillation
CPT/HCPCS: 36415; 80048; 93798

== ENCOUNTER 2018-03-17 13:00 | Outpatient (RCR) | payer MEDICARE, BC, SELFPAY ==
[2018-02-23 00:51] VITALS: BP 154/84; BP 188/104; BMI 25.8
--- NOTE | 2018-03-17 14:47 | PCM.CR.ITP ---
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 Maintain the individual as the primary focus of care. 2. To improve the patient's quality of life. 3. Identification of cardiac risk factors and provide cardiac risk factor management. 4. Enhance the psychosocial status of the patient. 5. Reconditioning enough to allow the patient to resume customary activities. 6. Control symptoms of cardiac disease Scale for measuring improvement of personal goals: Enter appropriate number in Comments. 2 = Unchanged. 3 = Slightly Better. 4 = Moderate Improvement. 5 = Met my Goal Personal Goals: 60-day Re-assessment: Improve energy level, Participate in home exercise program, Get back to work, or to resume activities faster, Improve muscle strength and endurance Exercise - 90-Day Assessment - Visit Date of Eval: 03/17/18 Session #:: 26 - Stages of Change Stages of Change:: Action - Exercise Prescription Mode:: Biodyne, Airdyne, NuStep Frequency (x/week): 3 Duration:: 30 METs: 5 Target Heart Rate:: 98-106 Max HR 82 - Hypertension Resting Blood Pressure:: 124/62 Peak Exercise Blood Pressure:: 144/76 Medication Changes:: No - Intervention Home Exercise/Activity Goal:: Sitting Time <3 hrs/day - Education Goals:: Warm-up, RPE AYLIN Scale, S/S, Safe Exercise, Self-Monitoring - Exercise Program Goals Exercise Program Goals: Aerobic Activity >30 min, B/P <140/90 Nutrition - 90-Day Assessment - Program Goals Nutrition Program Goals: LDL <70. Total Cholesterol <200. HDL >45. Triglycerides <150. HgbA1C <7%. BMI <25 - Visit Date of Eval: 03/17/18 - Stages of Change Stages of Change:: Action - Lipids Has the patient seen the dietitian?: No - Diabetes Diabetes:: No - Weight Management Weight:: 91.172 kg - Intervention Referral to dietitian:: No Referral to Diabetic Clinic:: No Will attend diet classes:: Yes - Education Attended class for:: Signs & symptoms of hypoglycemia, Signs & symptoms of hyperglycemia, Relate diabetes to coronary artery disease, Healthy eating Tobacco - Initial Assessment - Program Goals Tobacco Program Goals: Complete smoking cessation. Attend education classes. Improve Knowledge Test score - Learning Barriers Learning Barriers: Hearing, Vision Tobacco - 90-Day Assessment - Program Goals Tobacco Program Goals: Complete smoking cessation. Attend education classes. Improve Knowledge Test score - Stage of Change Stages of Change:: Action - Learning Barriers Learning Barriers: Participates in education - Family Support Do you have family support?: Yes - Tobacco Use Tobacco Use: Non-smoker Do you use smokeless tobacco?: No - Intervention Smoking Cessation Referral:: No Individual Education/Counseling:: No Education Schedule Given:: Yes - Education Attended class for:: Tobacco triggers, Coronary artery disease, Risk factors, Sexuality, Medical compliance, Cardiac A&P, Angina signs & symptoms Psychosocial - Initial Assess - Target Goals Target Goals: Assess presence or absence of depression. Using a valid screening tool, maximizes coping skills. Positive support system - Psychosocial Test Tool Used:: HANDS Depression Questionnaire - Assistive Devices Fall Risk Assessed:: Yes Psychosocial - 90-Day Assess - Target Goals Target Goals: Assess presence or absence of depression. Using a valid screening tool, maximizes coping skills. Positive support system - Stages of Change Stages of Change:: Action - Psychosocial Test Tool Used:: HANDS Depression Questionnaire - Intervention PS - Interventions: Yes Attend Stress Management Classes, Yes Uses Stress Management Skills, No Referral to Mental Health, No Referral to [facility] Case Management, No Referral to Physician - Education Attended classes for:: Coping techniques, Signs & symptoms of depression, Stress management, Relaxation techniques - Assistive Devices Assistive Devices:: None Fall Risk Assessed:: Yes Patient Health Questionnaire 90-Day Re-eval Assessment 1. Little interest or pleasure in doing things: Not at all 2. Feeling down, depressed, or hopeless: Not at all 3. Trouble falling or staying asleep, or sleeping too much: Not at all 4. Feeling tired or having little energy: Not at all 5. Poor appetite or overeating: Not at all 6. Feeling bad about yourself -- or that you are a failure or have let yourself or your family down: Not at all 7. Trouble concentrating on things, such as reading the newspaper or watching television: Not at all 8. Moving or speaking so slowly that other people could have noticed. Or the opposite - being so fidgety or restless that you have been moving around a lot more than usual: Not at all 9. Thoughts that you would be better off , or of hurting yourself in some way: Not at all How difficult have these problems made it for you to do your work, take care of things at home, or get along with other people?: Not difficult at all Total Score: 0 Self-Efficacy 90-Day Re-eval Assessment We would like to know how confident you are in doing certain activities. Please select your confidence level for:: Select your confidence level for the following using the scale 1-10 where 1 is not at all confident and 10 is totally confident. Your score is the average of all 6 responses. Fatigue: How confident are you that you can keep the fatigue caused by your disease from interfering with the things you want to do? Select Number: 9 Physical Discomfort or Pain: How confident are you that you can keep the physical discomfort or pain of your disease from interfering with the things you want to do? Select Number: 9 Emotional Distress: How confident are you that you can keep the emotional distress caused by your disease from interfering with the things you want to do? Select Number: 9 Other Symptoms or Health Problems: How confident are you that you can keep other symptoms or health problems from interfering with the things you want to do? Select Number: 9 Different Tasks and Activities: How confident are you that you can do the different tasks and activities needed to manage your health condition so as to reduce your need to see a doctor? Select Number: 9 Medication: How confident are you that you can do things other than just taking medication to reduce how much your illness affects your everyday life? Select Number: 9 Total Score:: 9
[2018-03-17 14:57] VITALS: BP 124/62; BP 144/76
== END 2018-03-24 23:59 ==
LOC: CR 13:00
PROVIDERS: Family Provider Family Medicine; PCP Family Medicine; Visit Provider Thoracic Surgery (Cardiothoracic Vascular Surgery)
DX: Z95.1 Presence of aortocoronary bypass graft (principal)
CPT/HCPCS: 93798

== ENCOUNTER → 2018-11-04 08:36 | Outpatient (CLI) | payer MEDICARE, BC, SELFPAY ==
[2018-10-27 14:59] VITALS: BMI 26.9
[2018-11-04 10:15] LABS: AST(SGOT) 26 U/L (15-37); Alanine Aminotransfer ALT/SGPT 25 U/L (16-61); Albumin, Serum 3.6 g/dL (3.2-5.0); Alkaline Phosphatase 53 U/L (45-117); Bilirubin, Direct 0.19 mg/dL (0.00-0.30); Cholesterol 110 mg/dL (200); Globulin 3.1 g/dL (2.2-4.2); High Density Lipoprotein 25 mg/dL; Protein, Total 6.7 g/dL (6.4-8.2); Triglycerides 62 mg/dL; Very Low Density Lipoprotein 12 mg/dL (5-40)
--- OUTSIDE RECORDS SUMMARY | 2018-12-21 06:57 | XMS RPT_ITS ---
:1940 Author Organization OHIP Support Name Relationship Address Phone RIDGE CLARKE Unavailable [address] + [place] [address] MICHELE, EMMA Unavailable Unavailable + [place] [address] R Unavailable Unavailable Unavailable MICHELE, RIDGE Unavailable [address] + [place] [address] MICHELE, EMMA Unavailable . + [place] [address] R Unavailable Unavailable Unavailable MICHELE, RIDGE Unavailable [address] + [place] [address] MICHELE, EMMA Unavailable . + [place] [address] R Unavailable Unavailable Unavailable MICHELE, RIDGE Unavailable [address] + [place] [address] MICHELE, EMMA Unavailable . + [place] [address] R Unavailable Unavailable Unavailable MICHELE, RIDGE Unavailable [address] + [place] [address] MICHELE, EMMA Unavailable . + [place] [address] R Unavailable Unavailable Unavailable MICHELE, RIDGE Unavailable [address] + [place] [address] MICHELE, EMMA Unavailable . + [place] [address] R Unavailable Unavailable Unavailable MICHELE, RIDGE Unavailable [address] + [place] [address] MICHELE, EMMA Unavailable Unavailable + [place] [address] R Unavailable Unavailable Unavailable MICHELE, RIDGE Unavailable [address] + [place] [address] MICHELE, EMMA Unavailable Unavailable + [place] [address] R Unavailable Unavailable Unavailable MICHELE, RIDGE Unavailable [address] + [place] [address] EMMA CLARKE Unavailable Unavailable + [place] [address] R Unavailable Unavailable Unavailable MICHELE, RIDGE Unavailable [address] + [place] [address] R Unavailable Unavailable Unavailable MICHELE, RIDGE Unavailable [address] + [place] [address] R Unavailable Unavailable Unavailable MICHELE, RIDGE Unavailable [address] + [place] [address] R Unavailable Unavailable Unavailable MICHELE, RIDGE Unavailable [address] + [place] [address] R Unavailable Unavailable Unavailable Care Team Providers Name Role Phone Darin Cummings Attending Unavailable Darin Cummings Referring Unavailable Jaye, Erika Primary Care Unavailable Rebecca Gilmore Attending Unavailable Darin Cummings Attending Unavailable Jaye, Erika Referring Unavailable Marisabel, Garret Attending Unavailable Garret Petit Referring Unavailable Jaye, Erika Primary Care Unavailable Darin Cummings Consulting Unavailable Ladi Huston Attending Unavailable Ladi [place]on Attending Unavailable Jaye, Erika Referring Unavailable Rebecca [place] Attending Unavailable Ladi [place] Attending Unavailable Ladi [place] Referring Unavailable Jaye, Erika Primary Care Unavailable Garret Petit Attending Unavailable Jaye, Erika Primary Care Unavailable Darin Cummings Consulting Unavailable Garret Petit Referring Unavailable Garret Petit Attending Unavailable Jaye, Erika Primary Care Unavailable Darin Cummings Consulting Unavailable Garret Petit Attending Unavailable Jaye, Erika Primary Care Unavailable Darin Cummings Consulting Unavailable Garret Petit Attending Unavailable Marielenaa, Garret Referring Unavailable Jaye, Erika Primary Care Unavailable Ladi [place]uston Attending Unavailable Jaye, Erika Referring Unavailable Jaye, Erika Primary Care Unavailable ARNULFO HERNDON ([facility]) Attending Unavailable JAYE, ERIKA ANGELIKA Referring Unavailable ARNULFO HERNDON Attending Unavailable JAYE, ERIKA Referring Unavailable JAYE, ERIKA Primary Care Unavailable PROBLEMS PROBLEMS DATE TYPE CONDITION / CODE ATTENDING STATUS SOURCE 10/27/2018 Unknown I25.10 - Darin Cmumings Active [facility] heart disease of Hospital [place] coronary Repository artery without angina pectoris / I25.10(ICD-10) 03/25/2018 Unknown Z95.1 - Presence of [place], Active [place] aortocoronary bypass [facility] graft / Hospital Z95.1(ICD-10) Repository 03/10/2018 Unknown I35.0 - Nonrheumatic [place] Active [place] aortic (valve) [facility] stenosis / Hospital I35.0(ICD-10) Repository 03/10/2018 Unknown I10 - Essential [place], Active [place] (primary) [facility] hypertension / Hospital I10(ICD-10) Repository 03/10/2018 Unknown I97.89 - Other [place] Active [facility] postprocedural [facility] complications and Hospital disorders of the Repository circulatory system, not elsewhere classified / I97.89(ICD-10) 03/10/2018 Unknown I48.91 - Unspecified [place]el Active [place] atrial fibrillation [facility] / I48.91(ICD-10) Hospital Repository 12/19/2017 Active Day[place] / ARNULFO HERNDON [place] UNK(Unknown) ([facility]) Clinic Other [place] Repository 12/19/2017 Admitting Unknown / ARNULFO HERNDON [place] [facility] diagnosis UNK(Unknown) Health System Repository PROCEDURES PROCEDURES No Procedure Records FoundRESULTS RESULTS LIVER PROFILE Collected: 11/04/2018 Status: F Source: [place] 8:55 AM [facility] HOSPITAL REPOSITORY TYPE CODE TESTS RESULT OUT OF RANGE REFERENCE UNITS LAB L501.1500 6.4-8.2 g/dL Normal T PROT 6.7 LAB L501.1800 3.2-5.0 g/dL Normal ALB 3.6 LAB L501.1950 2.2-4.2 g/dL Normal GLOB 3.1 LAB L501.4100 15-37 U/L Normal AST 26 LAB L501.4305 45-117 U/L Normal ALK P 53 LAB L501.4405 16-61 U/L Normal ALT 25 LAB L501.4600 0.20-1.00 mg/dL Normal T BILI 0.60 LAB L501.4700 0.00-0.30 mg/dL Normal D BILI 0.19 Performed By: #### L500.3400, L500.4100 #### [facility] [address] [place], [address] LIPID PROFILE Collected: 11/04/2018 Status: F Source: [place] 8:55 AM [facility] REPOSITORY TYPE CODE TESTS RESULT OUT OF RANGE REFERENCE UNITS LAB L501.4900 200 mg/dL Normal CHOL 110 Result Comment: <200 mg/dL Desirable 200-240 mg/dL Borderline >240 mg/dL High Risk LAB L501.5000 mg/dL Normal TRIG 62 Result Comment: The drugs N-Acetylcysteine and Metamizole may falsely depress this assay. Serum Triglycerides Reference Interval Normal <150 mg/dL Borderline high 150 - 199 mg/dL High 200 - 499 mg/dL Very High > or = 500 mg/dL LAB L501.6400 mg/dL Low HDL 25 Result Comment: The drugs N-Acetylcysteine and Metamizole may falsely depress this assay. Reference Range HDL <40 mg/dL Low HDL Cholesterol HDL >or= 60 mg/dL High HDL Cholesterol LAB L501.6500 0-130 mg/dL Normal LDL 73 LAB L501.6600 5-40 mg/dL Normal VLDL 12 Performed By: #### L500.3400, L500.4100 #### [facility] [address] [place], [address] CARDIOLOGY VISIT Observed: 10/27/2018 Status: F Source: [place] REPORT 3:26 PM [facility] REPOSITORY [facility] [address] [place] [address] OFFICE VISIT Date of Service: 10/27/18 MR#: [id number] Acct: [id number] Name: ZAIDA CLARKE Rep #: [id number] : 1940 Provider: Darin Cummings MD Age/Sex: 77/M Location: [facility] Status: Signed HPI HPI Chief Complaint: Routine f/u Details: ZAIDA CLARKE, is a 77 M who presents to the office today for a hospital follow-up. Patient underwent bypass surgery and aortic valve replacement for aortic stenosis in September 2017. Postoperatively he had atrial fibrillation but then converted. His cardiovascular surgeon has since discontinued his Coumadin. Patient was started on atorvastatin postoperatively. Patient has discontinued this on his own. He did not like the way he made him feel. He question why he needed to take this if he has always had normal cholesterol. Patient completed cardiac rehab. He is now here in follow-up. Patient denies any chest pain, angina, shortness of breath or dyspnea on exertion. He denies any fevers or chills. He has been given today and updated SBE prophylaxis card. In our office today's blood pressure is 124/70, and pulse is 60 and regular. His physical exam demonstrates a 2/6 systolic ejection murmur best heard at the upper right sternal border radiating to the clavicles. He has no edema. Lipids are pending. Intake Vital Signs10/27/18 Height 6 ft 1 in 10/27/18 Weight: 204 lb 10/27/18 Body Mass Index (BMI) 26.9 10/27/18 Blood Pressure 124/70 H Intake Visit Reasons: 6 M Nursing Program Coordinator Required: No Accompanied by: Son Is patient in pain?: No Allergies Penicillins Allergy (Verified 10/24/18 08:43) Rash Sulfa (Sulfonamide Antibiotics) Allergy (Verified 10/24/18 08:43) Unknown metoprolol [From Lopressor] Adverse Reaction (Severe, Verified 10/24/18 08:43) Unknown Medications Tamsulosin HCl [Flomax] 0.4 mg PO DAILY 01/12/14 [History Confirmed 10/24/18] Aspirin E.C. 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) COPD (chronic obstructive pulmonary disease) (Chronic) HTN (hypertension) (Chronic) Surgical History H/O aortic valve replacement (Chronic 11/08/17) H/O coronary artery bypass surgery (Chronic 11/08/17) Family History Father CAD (coronary artery disease) Mother Breast cancer Brother Suicide Social History Smoking Status: Former smoker alcohol intake: never substance use type: does not use caffeine: No what type of physical activity do you participate in: other details: therapy frequency: 3-4 times per week duration: 45-60 minutes/day do you feel safe at home: Yes ROS Const Const: Negative for fatigue, weakness, body ache, fever(s), headache(s), chills, frequent falls, night sweats, daytime sleepiness, difficulty sleeping, excessive sweating, weight gain, weight loss, increased appetite, poor appetite, anorexia or other Eyes Eyes: Negative for blind spots, loss of peripheral vision, transient loss of vision, blurry vision, change in vision, double vision, floaters, tunnel vision or other ENT ENT: Negative for headache(s), dizziness, hearing loss, tinnitus, Nosebleed/epistaxis, balance problems, post nasal drip, lip swelling, tongue swelling, bleeding gums, hoarseness, neck pain, dry mouth or other Cardio Chest Pain: No Resp Respiratory: Negative for SOB with activity, SOB at rest, SOB orthopnea\SOB lying down, Coughing up blood/hemoptysis, chest congestion, pain on inspiration, snoring, stridor, wheezing, crackles, paroxysmal nocturnal dyspnea or other GI GI: Negative nausea, vomiting, heartburn, constipation, belching, bloating, cramping, vomiting blood/hematemesis, bright, red blood in stools, black,tarry stools, loose stools, Difficulty Swallowing or other : Negative for hematuria, frequent nighttime urination/ nocturia, erectile dysfunction or abnormal vaginal bleeding Musc Musc: Negative for balance problems, muscle aches/ myalgia, muscle weakness or joint pain Skin Skin: Negative redness, non-healing lesions, rash, unusual bruising, skin ulcer, wounds, jaundice or other Neuro Neuro: Negative for weakness, headache(s), frequent falls, blurry vision, double vision, dizziness, lightheadedness, near syncope, syncope, orthostatic symptoms, confusion, memory loss, restless legs, vertigo, seizures, lack of coordination or other Tay Hematologic/Lymphatic: Negative for easy bleeding, easy bruising, enlarged lymph nodes or other Endo Endo: Negative for fatigue, excessive sweating, cold intolerance, heat intolerance, flushing, increased thirst/drinking, increased hunger, hair loss, hair growth or other Psych Psych: Negative for anxiety, depression, thoughts of harming anyone, thoughts of harming yourself, visual hallucinations, panic attacks or audible hallucinations Allergy Allergy/Immunology: Negative for lip swelling, Negative for tongue swelling, Negative for rash, Negative for throat swelling, Negative for hives Cardiology Exam Const Appearance: cooperative, healthy appearing and no acute distress Nutritional Appearance: well nourished Orientation: alert, oriented x3 and oriented to person Head Head: normal to inspection, atraumatic and normocephalic Nose: external nose normal Face and Sinus: face symmetric Mouth: oral mucosae normal Eyes General: appearance normal, both eyes and all related structures Eyelids: eyelids normal Conjunctivae: conjunctivae normal Pupils: PERRL and normal by confrontation EOM: EOM intact bilaterally Neck Neck: normal visual inspection and full ROM Carotids: normal carotid upstroke Chest Chest inspection: normal inspection of the chest Auscultation: Bilateral: Clear to Auscultation Cardio Palpation: normal PMI Rate: regular rate Rhythm: regular rhythm Heart sounds: S2 normal Murmur: Grade 2/6 and crescendo-decrescendo GI GI: normal to inspection, no hepatosplenomegaly and bowel sounds present Neuro General: alert, oriented x3, awake, CN's II-XI intact bilaterally and moves all extremities Skin Skin: no rashes or lesions noted Extremities Pulses: Normal: Right Femoral Pulse, Left Femoral Pulse, Right Dorsalis Pedis Pulse, Left Dorsalis Pedis Pulse, Right Posterior Tibial Pulse, Left Posterior Tibial Pulse, Right Radial Pulse, Left Radial Pulse Lower Extremity Edema: None: Bilateral Psych Psychological: normal affect Assessment AND Plan 1. Atherosclerosis of [place] coronary artery of [place] heart without angina pectoris I25.10 CESPEDES to LAD, SVG to Diag, SVG to OM, SVG to PDA 10/2017 Plan 1. Coronary artery disease: No anginal symptoms at this time. Blood pressure and heart rate are well-controlled. Recommend continuing baby aspirin, Lasix, lisinopril and Lopressor. Orders Orders: 2. H/O aortic valve replacement Z95.2 AVR #23 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 Aortic valve replacement: Patient's repeat echocardiogram was less than 1 year ago. No indication for any additional testing. SBE prophylaxis card given. 3. Hyperlipidemia: Patient initially declined lipid control medications, but I recommended a repeat lipid profile. Would recommend either statin based medicines or gemfibrozil depending upon his LDL. The patient has known coronary disease status post bypass surgery and should have an LDL less than 70. 4. Return office in 6 months. This note was generated using a voice recognition system and there may be incorrect words, spelling or punctuation that were not noted when reviewing the office note prior to saving. Plan Detail Other Medications New: clindamycin HCl 600 mg PO 1 hour prior to dental appointment for aortic valve replacement; 2 caps 6RF Changed: Discontinued: Follow Up +6M (Emiliano) Coding Level of Care Code Off vis,est,level 3 Diagnoses Atherosclerosis of [place] coronary artery of [place] heart without angina pectoris I25.10 Coronary Disease-Associated Artery/Lesion type: [place] artery H/O aortic valve replacement Z95.2 Coding Level of Care Code Off vis,est,level 3 Diagnoses Atherosclerosis of [place] coronary artery of [place] heart without angina pectoris I25.10 Coronary Disease-Associated Artery/Lesion type: [place] artery H/O aortic valve replacement Z95.2 10/27/18 1526 <Electronically signed by Darin Cummings MD> Date Darin Cummings MD Cosign Signature: Date (if applicable) CC: Erika Cee MD CARDIOLOGY VISIT Observed: 03/14/2018 Status: F Source: [place] REPORT 11:46 AM [facility] REPOSITORY [facility] [address] [place], [place] [address]e. [address] [place] [address] OFFICE VISIT Date of Service: 03/14/18 MR#: [id number] Acct: [id number] Name: ZAIDA CLARKE Rep #: [id number] : 1940 Provider: Ladi Huston Age/Sex: 77/M Location: [facility] Status: Signed HPI HPI Details: ZAIDA CLARKE, is a 77 M who presents to the office today for a cardiovascular follow up. Patient underwent bypass surgery and aortic valve replacement for aortic stenosis in September 2017. Postoperatively he had atrial fibrillation. His cardiovascular surgeon has since discontinued his Coumadin. Patient was started on atorvastatin postoperatively. Patient is currently in cardiac rehab. He is doing very well. He does not have any chest discomfort or heaviness. He does not have any worsening shortness of breath. His exercise tolerance is improving on a daily basis. His energy level is improving on a daily basis. He has had some palpitations, these are only a fee seconds and do not last long. He has not had any lightheadedness or dizziness. He still does have some lower extremity edema. He has been on a diuretic prior to surgery. Intake Vital Signs03/14/18 Height 6 ft 1 in 03/14/18 Weight: 204 lb 03/14/18 Body Mass Index (BMI) 26.9 03/14/18 Blood Pressure 128/72 Intake Visit Reasons: 6 wk f/up Nursing Program Coordinator Required: No Accompanied by: Is patient in pain?: No Allergies Penicillins Allergy (Verified 03/14/18 11:15) Rash Sulfa (Sulfonamide Antibiotics) Allergy (Verified 03/14/18 11:15) Unknown metoprolol [From Lopressor] Adverse Reaction (Severe, Verified 03/14/18 11:15) Unknown Medications Tamsulosin HCl [Flomax] 0.4 mg PO DAILY 01/12/14 [History Confirmed 03/14/18] Aspirin E.C. [Ecotrin] 81 mg PO DAILY@0800 10/08/17 [History Confirmed 03/14/18] lisinopril 5 mg tablet 5 mg PO QDAY #90 tab 01/27/18 [Rx Confirmed 03/14/18] metoprolol tartrate 50 mg tablet 50 mg PO BID #90 tab 01/27/18 [Rx Confirmed 03/14/18] pravastatin 10 mg tablet 10 mg PO QHS #30 tab 01/27/18 [Rx Confirmed 03/14/18] furosemide 40 mg tablet PO 30 Days #30 03/14/18 [History Confirmed 03/14/18] Ejection fraction %: 65 to 70 PFSH Medical History Nonrheumatic mitral (valve) prolapse (Chronic) Nonrheumatic aortic (valve) stenosis (Chronic) Pulmonary valve insufficiency (Chronic) Atrial fibrillation (Chronic) halfway (current) use of anticoagulants (Chronic) 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) COPD (chronic obstructive pulmonary disease) (Chronic) HTN (hypertension) (Chronic) Surgical History H/O aortic valve replacement (Chronic 11/08/17) H/O coronary artery bypass surgery (Chronic 11/08/17) Family History Father CAD (coronary artery disease) Mother Breast cancer Brother Suicide Social History Smoking Status: Former smoker alcohol intake: never substance use type: does not use caffeine: No what type of physical activity do you participate in: other details: therapy frequency: 3-4 times per week duration: 45-60 minutes/day do you feel safe at home: Yes ROS Const Const: Negative for weakness, fatigue, fever(s) or headache(s) Eyes Eyes: Negative for blind spots, loss of peripheral vision or transient loss of vision ENT ENT: Negative for headache(s), dizziness, tinnitus or Nosebleed/epistaxis Cardio Chest Pain: No Palpitations: No Edema: None Muscle aches with walking: None Resp Respiratory: Negative for SOB with activity, SOB at rest, SOB orthopnea\SOB lying down or Cough GI GI: Negative nausea, vomiting, heartburn or vomiting blood/hematemesis : Negative for hematuria Musc Musc: Negative for muscle aches/ myalgia Neuro Neuro: Negative for weakness, headache(s), dizziness, near syncope, syncope, lightheadedness or orthostatic symptoms Tay Hematologic/Lymphatic: Negative for easy bleeding Endo Endo: Negative for fatigue Cardiology Exam Const Appearance: cooperative, no acute distress and well developed Orientation: alert, awake and oriented x3 Head Head: normocephalic and atraumatic Mouth: moist mucous membranes Eyes General: appearance normal, both eyes and all related structures Conjunctivae: conjunctivae normal Pupils: PERRL EOM: EOM intact bilaterally Neck Neck: normal visual inspection, no lymphadenopathy and no JVD Carotids: Negative bruit Neck Mass: Negative Neck mass Chest Chest inspection: normal inspection of the chest, symmetric chest movement and midline sternotomy incision Auscultation: Bilateral: Clear to Auscultation Cardio Palpation: normal PMI Rate: regular rate Rhythm: regular rhythm Heart sounds: S1 normal, S2 normal and murmur; negative rub or gallop Murmur: soft, Grade 2/6 and mid systolic GI GI: normal to inspection, soft, no hepatosplenomegaly and bowel sounds present; negative tender Neuro General: alert, awake, oriented x3, CN's II-XI intact bilaterally and moves all extremities Extremities Pulses: Normal: Right Posterior Tibial Pulse, Left Posterior Tibial Pulse, Right Radial Pulse, Left Radial Pulse Lower Extremity Edema: +1: Bilateral Psych Psychological: normal affect Assessment AND Plan 1. Atherosclerosis of [place] coronary artery of [place] heart without angina pectoris I25.10 CESPEDES to LAD, SVG to Diag, SVG to OM, SVG to PDA 10/2017 Plan Stable, from a cardiac standpoint patient does not have any symptoms of angina. We recommend that they continue with current aggressive medical management and risk factor modification. He will continue with cardiac rehab. 2. Nonrheumatic aortic (valve) stenosis I35.0 AVR #23mm [facility] Trifecta Bovine periocardial Plan Patient recently underwent valvular replacement. He will continue with his current medical management. We will continue to monitor by history, exam and echocardiograms as deemed appropriate. He is aware of antibiotic prophylaxis Patient is in cardiac rehab. 3. Essential hypertension I10 Plan Blood pressure is well controlled on current medications, we do not recommend any changes at this time. 4. Postoperative atrial fibrillation I97.89; I48.91 Plan Patient has not had any further recurrence. He is no longer on Coumadin. He will continue with his current dose of metoprolol. He is also on aspirin. This will be monitored during cardiac rehab. Plan Detail Additional Comments Thank you for allowing us to participate in patient's plan of care, if you have any questions please do not hesitate to call. This note was generated using a voice recognition system and there may be incorrect words, spelling or punctuation errors that were not noted when reviewing the office note prior to saving. Follow Up 6 Months (DJN) Coding Level of Care Code Off vis,est,level 3 Diagnoses Atherosclerosis of [place] coronary artery of [place] heart without angina pectoris I25.10 Coronary Disease-Associated Artery/Lesion type: [place] artery Nonrheumatic aortic (valve) stenosis I35.0 Essential hypertension I10 Hypertension type: essential hypertension Postoperative atrial fibrillation I97.89; I48.91 Coding Level of Care Code Off vis,est,level 3 Diagnoses Atherosclerosis of [place] coronary artery of [place] heart without angina pectoris I25.10 Coronary Disease-Associated Artery/Lesion type: [place] artery Nonrheumatic aortic (valve) stenosis I35.0 Essential hypertension I10 Hypertension type: essential hypertension Postoperative atrial fibrillation I97.89; I48.91 03/14/18 1146 <Electronically signed by Ladi ORR> Date Ladi ORR Cosigner Signature: Date (if applicable) CC: Erika Cee MD BASIC METABOLIC Collected: 03/10/2018 Status: F Source: [facility] PROFILE (BMP) 12:43 PM [facility] REPOSITORY TYPE CODE TESTS RESULT OUT OF RANGE REFERENCE UNITS LAB L501.0100 74-106 mg/dL Normal GLU 86 Result Comment: Please note revised GLUCOSE reference range effective 2017. LAB L501.1000 7-18 mg/dL High BUN 27 LAB L501.1100 0.70-1.30 mg/dL Normal CREAT,SERUM 1.06 Result Comment: The validity of the calculated GFR AND GFRAA in patients over 70 years has not been determined. Clinical correlation is essential. LAB L501.1110 >60 mL/min Normal EST GFR 72 Result Comment: Non- GFR Calc LAB L501.1115 >60 mL/min Normal EST GFR - AA 87 Result Comment: GFR Calc LAB L501.1300 10-20 RATIO High BUN/CRE 25.5 LAB L501.2200 8.5-10.1 mg/dL CA Normal 8.9 LAB L501.5300 136-145 mmol/L NA Normal 140 LAB L501.5600 3.5-5.1 mmol/L K Normal 4.6 LAB L501.5900 98-107 mmol/L CL Normal 106 LAB L501.6100 21.0-32.0 mmol/L High CO2 33.0 LAB L501.6200 5-15 Low GAP 1 Performed By: #### L500.2500 #### [facility] [address] [place], [address] CARDIOLOGY VISIT Observed: 02/14/2018 Status: F Source: [place] REPORT 2:07 PM [facility] REPOSITORY [facility] [address] [place] [place] [address] OFFICE VISIT Date of Service: 01/27/18 MR#: [id number] Acct: [id number] Name: ZAIDA CLARKE Rep #: [id number] : 1940 Provider: Ladi Huston Age/Sex: 77/M Location: [facility] [place] Status: Signed HPI HPI Details: ZAIDA CLARKE, is a 77 M who presents to the office today for a hospital follow-up. Patient underwent bypass surgery and aortic valve replacement for aortic stenosis in September 2017. Postoperatively he had atrial fibrillation. His cardiovascular surgeon has since discontinued his Coumadin. Patient was started on atorvastatin postoperatively. Patient has discontinued this on his own. He did not like the way he made him feel. He question why he needed to take this if he has always had normal cholesterol. Patient is currently in cardiac rehab. He is doing very well. He does not have any chest discomfort or heaviness. He does not have any worsening shortness of breath. His exercise tolerance is improving on a daily basis. His energy level is improving on a daily basis. He has not had any palpitations that he is aware. He has not had any lightheadedness or dizziness. He still does have some lower extremity edema. He is on the low dose of Lasix and wonders when this can be discontinued. Intake Vital Signs01/27/18 Height 6 ft 1 in 01/27/18 Weight: 194 lb 03/05/18 Body Mass Index (BMI) 25.6 01/27/18 Blood Pressure 130/70 01/27/18 Pulse Rate 62 Intake Visit Reasons: s/p [facility] Allergies Penicillins Allergy (Verified 01/27/18 14:06) Rash Sulfa (Sulfonamide Antibiotics) Allergy (Verified 01/27/18 14:06) Unknown Medications Tamsulosin HCl [Flomax] 0.4 mg PO DAILY 01/12/14 [History Confirmed 01/23/18] Aspirin E.C. 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) 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) COPD (chronic obstructive pulmonary disease) (Chronic) HTN (hypertension) (Chronic) Surgical History H/O aortic valve replacement (Chronic 11/08/17) H/O coronary artery bypass surgery (Chronic 11/08/17) Social History Smoking Status: Former smoker ROS Const Const: Positive for fatigue; negative for weakness, fever(s) or headache(s) Eyes Eyes: Negative for blind spots, loss of peripheral vision or transient loss of vision ENT ENT: Negative for headache(s), dizziness, tinnitus or Nosebleed/epistaxis Cardio Chest Pain: No Palpitations: No Edema: None Muscle aches with walking: None Resp Respiratory: Negative for SOB with activity, SOB at rest, SOB orthopnea\SOB lying down or Cough GI GI: Negative nausea, vomiting, heartburn or vomiting blood/hematemesis : Negative for hematuria Musc Musc: Negative for muscle aches/ myalgia Neuro Neuro: Negative for weakness, headache(s), dizziness, near syncope, syncope, lightheadedness or orthostatic symptoms Tay Hematologic/Lymphatic: Negative for easy bleeding Endo Endo: Positive for fatigue Cardiology Exam Const Appearance: cooperative, no acute distress and well developed Orientation: alert, awake and oriented x3 Head Head: normocephalic and atraumatic Mouth: moist mucous membranes Eyes General: appearance normal, both eyes and all related structures Conjunctivae: conjunctivae normal Pupils: PERRL EOM: EOM intact bilaterally Neck Neck: normal visual inspection, no lymphadenopathy and no JVD Carotids: Negative bruit Neck Mass: Negative Neck mass Chest Chest inspection: normal inspection of the chest, symmetric chest movement and midline sternotomy incision Auscultation: Bilateral: Clear to Auscultation Cardio Palpation: normal PMI Rate: regular rate Rhythm: regular rhythm Heart sounds: S1 normal, S2 normal and murmur; negative rub or gallop Murmur: soft, Grade 2/6 and mid systolic GI GI: normal to inspection, soft, no hepatosplenomegaly and bowel sounds present; negative tender Neuro General: alert, awake, oriented x3, CN's II-XI intact bilaterally and moves all extremities Extremities Pulses: Normal: Right Posterior Tibial Pulse, Left Posterior Tibial Pulse, Right Radial Pulse, Left Radial Pulse Lower Extremity Edema: None: Bilateral Psych Psychological: normal affect Assessment AND Plan 1. Atherosclerosis of [place] coronary artery of [place] heart without angina pectoris I25.10 CESPEDES to LAD, SVG to Diag, SVG to OM, SVG to PDA 10/2017 Plan - KIRBY Mendoza Patient has not had any symptoms of angina. He will continue with current medical management. Did review the importance of taking a statin medication. He is agreeable to start a low dose Bear Leslie. We will continue to monitor his labs. Orders Orders: 2. Nonrheumatic aortic (valve) stenosis I35.0 AVR #23mm [place] Trifecta Bovine periocardial Plan - KIRBY Mendoza Patient recently underwent valvular replacement. He will continue with his current medical management. We will continue to monitor by history, exam and echocardiograms as deemed appropriate. He is aware of antibiotic prophylaxis Patient is in cardiac rehab. Patient still does have some lower extremity edema. Hesitant to stop his Lasix at this time. We will re-evaluate this at his next office visit. Patient Instructions - KIRBY Mendoza Stay on the lasix until I see you in 6 weeks. The plan will be to stop this. Orders Orders: 3. Postoperative atrial fibrillation I97.89; I48.91 Plan - KIRBY Mendoza Patient has not had any further recurrence. He is no longer on Coumadin. He will continue with his current dose of metoprolol. He is also on aspirin. This will be monitored during cardiac rehab. Orders Orders: 4. Essential hypertension I10 Plan - KIRBY Mendoza Blood pressure is well controlled on current medications, we do not recommend any changes at this time. Orders Orders: Plan Detail Other Medications New: Discontinued: Additional Comments - KIRBY Mendoza We will continue to follow patient closely. Would like to see patient in 6 weeks. The above patient was discussed with Dr. Cummings, he agrees with plan of care. Thank you for allowing us to participate in patient's plan of care, if you have any questions please do not hesitate to call. This note was generated using a voice recognition system and there may be incorrect words, spelling or punctuation errors that were not noted when reviewing the office note prior to saving. Follow Up 6 Weeks (MMM) Coding Level of Care Code Off vis,est,level 4 Diagnoses Atherosclerosis of [place] coronary artery of [place] heart without angina pectoris I25.10 Coronary Disease-Associated Artery/Lesion type: [place] artery Nonrheumatic aortic (valve) stenosis I35.0 Postoperative atrial fibrillation I97.89; I48.91 Essential hypertension I10 Hypertension type: essential hypertension Coding Level of Care Code Off vis,est,level 4 Diagnoses Atherosclerosis of [place] coronary artery of [place] heart without angina pectoris I25.10 Coronary Disease-Associated Artery/Lesion type: [place] artery Nonrheumatic aortic (valve) stenosis I35.0 Postoperative atrial fibrillation I97.89; I48.91 Essential hypertension I10 Hypertension type: essential hypertension 01/29/18 1047 <Electronically signed by Ladi ORR> Date Ladi ORR 02/14/18 1407<Electronically signed by Darin Cummings MD> Cosigner Signature: Date (if applicable) Darin Cummings MD CC: Erika Cee MD CR - HISTORY AND Observed: 12/31/2017 Status: F Source: [facility] 10:44 AM [facility] REPOSITORY [facility] Cardiac Rehab [address] [place] [address] CR - History AND Physical MR#: [id number] Acct: [id number] Name: ZAIDA CLARKE Rep #: [id number] : 1940 77 From: Venkat Aguillon BS, RVT PCP: Erika Cee MD DOS: 12/27/17 CR - History AND Physical - General Arrival date:: 12/27/17 Arrival time:: 13:06 Date of Admission: 11/10/17 Referring Physician: Dr. Finch/ Dr. Cummings Primary Diagnosis: Z95.1 11/10/2017 - History of Present Cardiac Event Onset Date: Enter Onset Date of cardiac illnesses in Comment field below Angina:: Yes PR:: No CABG:: Yes PTCA:: No Valve Replacement/Repair:: Yes Pacemaker/ICD: No Were there any complications?: A-Fib - Medications Home Medications: Ambulatory Orders Medication Instructions Recorded Tamsulosin HCl [Flomax] 0.4 mg PO DAILY 01/12/14 Aspirin E.C. [Ecotrin] 81 mg PO DAILY@0800 10/08/17 Lisinopril [Zestril] 20 mg PO DAILY 10/08/17 - Allergies Allergies/Adverse Reactions: Allergies metoprolol [From Lopressor] Allergy (Verified 10/08/17 14:07) Unknown Penicillins Allergy (Verified 07/14/15 06:43) Rash Sulfa (Sulfonamide Antibiotics) Allergy (Verified 07/14/15 06:43) Unknown - Sleep Disorder Evaluation Hx of Sleep Apnea: No Do you snore loudly (louder than talking or can be heard through closed doors)?: Yes - Pt declines Do you often feel tired/ fatigued/ sleepy during daytime?: No Has anyone observed you stop breathing during sleep?: No History of Hypertension (for STOP score): Yes STOP Results: Positive Advanced Directives - Advanced Directives Power of Warehouse Technician: Yes Living Will: Yes Advance Directives Information Provided: Yes Advance Directives on File: No DNR Order?:: No Past Medical History - Problems and Co-Morbidities Problems AND Co-Morbidities: Hypertension - Past Medical Illness Other Medical Illnesses:: BPH - Past Cardiac Illness Past Cardiac Illness: Valve Disorders, Coronary Artery Disease, Coronary Artery Bypass Graft - Other Other: Vision/Eye Problems - Cardiology Procedures/Interventions Cardiology Procedures/Interventions: Heart Catheterization, Echocardiogram - Past Surgical History Surgical History: herniorrhaphy, total hip arthroplasty - Family History Summary Family History: Heart Disease: Paternal, Cancer: Maternal Review of Systems - Review of Systems Hints: Right click = Denies (Slash). Left click = Reports (Tribe) Review of Present Symptoms: Reports: Angina, Fatigue, Heart Arrhythmia/Irregularities, Appetite - Normal, Sleep - Normal. Denies: Shortness of Breath at Rest, Shortness of Breath with Exertion, PVD, Operative Discomfort, Wound Healing, Dizziness/Lightheadedness, Appetite - Special Diet, Sexual Changes Risk Factor Assessment - Chief Complaint Chief Complaint: CP - Pulse Pulse Rate: 73 - 94 SPO2 Pulse Rhythm: Regular - Hypertension How long have you been treated?: 5 month Blood Pressure Sitting - Right Arm: 124/64 - Diabetes Nutrition Referral for Diabetes: No - Obesity Height: 1.85 m Weight:: 88.904 kg Weight in Pounds: 196.0 lbs Body Mass Index (BMI): 25.8 Nutritional Referral for Obesity: No - Physical Inactivity Physical Inactivity: Reg Exercise 30 min/day, Recreational activity - Risk Stratification Risk Guidelines: Moderate Risk: Risk Factor for Smoking, Risk Factor for Dyslipidemia, Risk Factor for Diabetes, Risk Factor for Obesity, Risk Factor for Hypertension, Risk Factor for Sedentary Lifestyle, Risk Factor for Depression - For Smoking Smoking Risk Guidelines: Smoking Low Risk: None or quit greater than 6 months ago. Smoking Moderate Risk: Smoker or quit 6 months or less ago. Smoking High Risk: Smoker - For Dyslipidemia Dyslipidemia Risk Guidelines: Low Risk: Moderate Risk: High Risk: 15-25% fat 25.1-29% fat >/= 30% fat. <7% sat fat 7-9% sat fat >9% sat fat. <150 mg chol 150-299 mg chol >/= 300 mg chol. LDL <100 LDL 100-129 LDL >/= 130. Chol/HDL ratio <5.0 Chol/HDL ratio 5.0-6.0 Chol/HDL ratio >6.0. Triglycerides <100 Triglycerides 100-149 Triglycerides >/= 150 - For Diabetes Mellitus Diabetes Risk Guidelines: Diabetes Low Risk: HgA1c <6.5% and/or FBG <120. Diabetes Moderate Risk: HgA1c 6.6-7.9% and/or FBG 120- 180. Diabetes High Risk: HgA1c >/= 8% and/or FBG >180 - For Obesity/Overweight Obesity/Overweight Risk Guidelines: Obesity Low Risk: BMI <25.0. Obesity Moderate Risk: BMI 25-29.9. Obesity High Risk: BMI >/= 30.0 - For Hypertension Hypertension Risk Guidelines: Hypertension Low Risk: Systolic <120 and Diastolic <80. Hypertension Moderate Risk: Systolic 120-139 and Diastolic 80-89. Hypertension High Risk: Systolic >/= 140 and Diastolic >/= 90 - For Sedentary Lifestyle Sedentary Lifestyle Risk Guidelines: Sedentary Lifestyle Low Risk: >/= 1,500 kcal/week. Sedentary Lifestyle Moderate Risk: 700-1,499 kcal/week. Sedentary Lifestyle High Risk: < 700 kcal/week - For Depression Depression Risk Guidelines: Depression Low Risk: Not clinically depressed. Depression Moderate Risk: Mildly depressed. Depression High Risk: Clinically depressed Social History - Smoking History Smoking Status: Former smoker Hx Tobacco Use: Yes Hx Smoking Exposure: Yes - Alcohol Use Alcohol Usage: No - Substance Abuse Hx Substance Use: No - Occupation Occupation (List type of work in comments):: Retired - Hobbies, Recreation, Social Activities Hobbies: Farm, Reading Recreational Activities: I am able to engage in most, but not all activities Marital Status - Status Marital Status: - Current Living Arrangements Living Environment:: Family - Children How many children do you have?: 6 Do any of your children live nearby?: Yes - Safety Do you feel safe in your surroundings?: Yes - Assistance Do you need any assistance at home?: none 12/27/17 2415 <Electronically signed by Venkat HERZOG, RVT> Date Venkat Aguillon BS, RVT Outcome assessment reviewed. Exercise plan approved as documented. Treatment plan and goals support patient needs/abilities. Continue with current plan. I certify the patient demonstrates improvement and remains willing and capable of participation. the patient continues to benefit from cardiac rehab services/training. The patient may continue at current intensity, endurance and modality and progress per protocol. 12/31/17 1044 <Electronically signed by Darin Cummings MD> [facility] Signature: Date Darin Cummings MD CC: Signed PROGRESS Observed: 12/19/2017 Status: COMPLETED Source: [place] 10:48 AM CLINIC OTHER CAMPUS REPOSITORY O ID: [id number] Author: Arnulfo Trejo) Ramana Service: (none) Author Type: Nurse Practitioner Type: Progress Notes Filed: 12/19/2017 4:04 PM Note Text: HPI:Zaida Clarke is a 77 year old male that returns to the office today for 1 month post-discharge follow up for s/p combined, CABGX4 (CESPEDES - LAD; SVG-Diag; SVG-OM; SVG-PDA. Left GSV endoscopic ?vein harvesting) and Aortic valve replacement with 23-mm [place] Trifecta performed on 11/08/2017. His post-operative course was complicated by atrial fibrillation (now resolved), urinary retention and generalized weakness. He was discharged on 11/16/2017. Today Mr. Clarke reports he is doing well, much better this last week or so. Still losing some weight in spite of a good appetite; ankle swelling is now better than before surgery. Walking better, sleeping well most nights. Denies pain. He hasn't had any new episodes of dizziness or syncope, no chest pain, palpitations, BP has been well control per patient. Tolerating diet well without changing bowel habits. No fever, chills. Has been engaging in more activities at home without having SOB or BRIONES. Patient seems to be pleased with his overall recovery. Patient's tolerating post surgical pain without pain medications. Subjective: Current Outpatient Prescriptions: lisinopril (ZESTRIL, PRINIVIL) 5 mg tablet Take 1 tablet by mouth once daily. metoprolol tartrate, short acting, (LOPRESSOR) 50 mg tablet Take 1 tablet by mouth twice daily. potassium chloride (KLOR-CON) 20 mEq packet Take 20 mEq by mouth once daily. furosemide (LASIX) 20 mg tablet Take 1 tablet by mouth once daily. aspirin, enteric coated (ASPIRIN, ENTERIC COATED) 81 mg EC tablet Take 1 tablet by mouth once daily. tamsulosin ER (FLOMAX) 0.4 mg cp24 Take 0.4 mg by mouth once daily. atorvastatin (LIPITOR) 40 mg tablet Take 1 tablet by mouth daily at bedtime. acetaminophen (TYLENOL) 325 mg tablet Take 1-2 tablets by mouth every 4 hours as needed. No current facility-administered medications for this visit. 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 - SOB (shortness of breath) PAST SURGICAL HISTORY Procedure Laterality Date - CABG (4) VEIN GRAFTS AND ARTERIAL GRAFT(S) 11/08/2017 - CARDIAC CATH 10/09/2017 [facility] - INGUINAL HERNIA REPAIR HX Left 2014 - PAST SURGICAL HISTORY OF 11/08/2017 [facility]R,[facility] - REPLACEMENT AORTIC VALVE W BYPASS 11/08/2017 23-mm [place] Trifecta pericardial prosthesis; - SE 10/09/2017 [facility] - TOTAL HIP REPLACEMENT Left 2011 FAMILY HISTORY Problem Relation Age of Onset - Cancer Mother Breast - Heart Father CAD - Depression Brother suicide Social History Substance Use Topics - Smoking status: Former Smoker Years: 3.00 Types: Cigarettes - Smokeless tobacco: Never Used Comment: quit 50 years - Alcohol use No Review of Systems Constitutional: Positive for weight loss. Negative for chills, fever and malaise/fatigue. HENT: Negative for sore throat. Respiratory: Negative for cough, sputum production, shortness of breath and wheezing. Cardiovascular: Negative for chest pain, palpitations, orthopnea, claudication, leg swelling and PND. Gastrointestinal: Negative for abdominal pain, blood in stool, constipation, diarrhea, melena, nausea and vomiting. Genitourinary: Negative for dysuria. Musculoskeletal: Negative for falls and joint pain. Skin: No new lesions Neurological: Negative for dizziness, tingling, sensory change, focal weakness, weakness and headaches. Endo/Heme/Allergies: Does not bruise/bleed easily. Psychiatric/Behavioral: Negative for depression. Objective: One month post- op Chest X-ray is done and reviewed today. Residual small left pleural effusion and left basilar atelectasis. Physical Examination: Vitals:BP 120/70 Pulse 74 Resp 12 Ht 6' 1 (1.85m) Wt 191 lb (86.6kg) SpO2 96% BMI 25.20 kg/(m2). Extended Vitals not filed for this encounter. Last 2 Encounter Wt Readings: Date: Wt: 12/19/2017 191 lb (86.6 kg) 11/21/2017 207 lb (93.9 kg) Physical Exam Constitutional: He is oriented to person, place, and time and well-developed, well-nourished, and in no distress. HENT: Head: Normocephalic. Eyes: Pupils are equal, round, and reactive to light. Cardiovascular: Normal rate, regular rhythm, S1 normal, S2 normal and intact distal pulses. No murmur heard. Pulmonary/Chest: Effort normal and breath sounds normal. No respiratory distress. He has no wheezes. Diminished left lower lobe Abdominal: Soft. Normal appearance and bowel sounds are normal. Musculoskeletal: He exhibits edema (L>R much improved from immediate post-op). Neurological: He is alert and oriented to person, place, and time. Skin: Skin is warm and intact. Midsternal incision clean dry, well approximated, no redness or drainage SVG site clean dry, no redness, drainage, or hematoma Sternum is stable no discernable malunion. Psychiatric: Mood and affect normal. Assessment and Plan: ASSESSMENT/PLAN: 1. S/P AVR (aortic valve replacement) - ICD9: V43.3, ICD10: Z95.2 (primary diagnosis) - C/W ASA, Metoprolol, lisinopril and atorvastatin - CONSULT TO CARD REHAB PHASE II To start in [place] next week 2. 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 ? 3. Atrial Fibrillation - Post operative - Regular pulse and rhythm with no extrasystoles heard. - NSR per ECG 12/04/2017 - D/C coumadin - Follow-up with Dr. Cummings ? 4. Urinary retention - Resolving, patient reports no difficulty with urination. - Tolerating lasix daily with out retention. 5. 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 Cummings or RAO ? 6. Hypertension - Controlled with BB and low-dose lisinopril In summary, Patient is doing well overall after the [facility] sugery, with no major complaints. Patient is released to drive, work. Patient should start cardiac rehab from this point on. 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 Thanks. Electronically signed by Arnulfo Herndon CNP on December 19, 2017, 10:48 AM CNJEFERSON Observed: 12/19/2017 Status: COMPLETED Source: [place] 10:00 AM [facility] OTHER CAMPUS REPOSITORY Office Visit (AGVASACC) ZAIDA CLARKE ([id number]) 1940 M Date Time Provider Department 12/19/17 10:00 AM ARNULFO HERNDON (RAO) AGVASACC During your visit today, we recorded the following information about you: Pulse Respiration Blood pressure Weight 74/minute 12/minute 120/70 86.6 kg Height 1.854 m Arnulfo Herndon CNP 12/19/2017 4:03 PM Addendum - You may drive! - Please begin cardiac rehab. - Weight bearing restriction remains: No lifting more than 10 lbs. You may begin to gradually increase the amount of weight bearing. Cardiac rehab will help with this. - Please see your woven blind loom tender regularly. They will take over medication management. - Please feel free to call us if you have any post-operative concerns. Thank you for coming to see me today!! RAO Trinidad CNP 12/19/2017 4:04 PM Signed HPI:Zaida Clarke is a 77 year old male that returns to the office today for 1 month post-discharge follow up for s/p combined, CABGX4 (CESPEDES - LAD; SVG-Diag; SVG-OM; SVG-PDA. Left GSV endoscopic ?vein harvesting) and Aortic valve replacement with 23-mm [place] Trifecta performed on 11/08/2017. His post-operative course was complicated by atrial fibrillation (now resolved), urinary retention and generalized weakness. He was discharged on 11/16/2017. Today Mr. Clarke reports he is doing well, much better this last week or so. Still losing some weight in spite of a good appetite; ankle swelling is now better than before surgery. Walking better, sleeping well most nights. Denies pain. He hasn't had any new episodes of dizziness or syncope, no chest pain, palpitations, BP has been well control per patient. Tolerating diet well without changing bowel habits. No fever, chills. Has been engaging in more activities at home without having SOB or BRIONES. Patient seems to be pleased with his overall recovery. Patient's tolerating post surgical pain without pain medications. Subjective: Current Outpatient Prescriptions: lisinopril (ZESTRIL, PRINIVIL) 5 mg tablet Take 1 tablet by mouth once daily. metoprolol tartrate, short acting, (LOPRESSOR) 50 mg tablet Take 1 tablet by mouth twice daily. potassium chloride (KLOR-CON) 20 mEq packet Take 20 mEq by mouth once daily. furosemide (LASIX) 20 mg tablet Take 1 tablet by mouth once daily. aspirin, enteric coated (ASPIRIN, ENTERIC COATED) 81 mg EC tablet Take 1 tablet by mouth once daily. tamsulosin ER (FLOMAX) 0.4 mg cp24 Take 0.4 mg by mouth once daily. atorvastatin (LIPITOR) 40 mg tablet Take 1 tablet by mouth daily at bedtime. acetaminophen (TYLENOL) 325 mg tablet Take 1-2 tablets by mouth every 4 hours as needed. No current facility-administered medications for this visit. 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 - SOB (shortness of breath) PAST SURGICAL HISTORY Procedure Laterality Date - CABG (4) VEIN GRAFTS ANDamp; ARTERIAL GRAFT(S) 11/08/2017 - CARDIAC CATH 10/09/2017 [facility] - INGUINAL HERNIA REPAIR HX Left 2014 - PAST SURGICAL HISTORY OF 11/08/2017 AVR,MCABG - REPLACEMENT AORTIC VALVE W BYPASS 11/08/2017 23-mm [place] Trifecta pericardial prosthesis; - SE 10/09/2017 [facility] - TOTAL HIP REPLACEMENT Left 2011 FAMILY HISTORY Problem Relation Age of Onset - Cancer Mother Breast - Heart Father CAD - Depression Brother suicide Social History Substance Use Topics - Smoking status: Former Smoker Years: 3.00 Types: Cigarettes - Smokeless tobacco: Never Used Comment: quit 50 years - Alcohol use No Review of Systems Constitutional: Positive for weight loss. Negative for chills, fever and malaise/fatigue. HENT: Negative for sore throat. Respiratory: Negative for cough, sputum production, shortness of breath and wheezing. Cardiovascular: Negative for chest pain, palpitations, orthopnea, claudication, leg swelling and PND. Gastrointestinal: Negative for abdominal pain, blood in stool, constipation, diarrhea, melena, nausea and vomiting. Genitourinary: Negative for dysuria. Musculoskeletal: Negative for falls and joint pain. Skin: No new lesions Neurological: Negative for dizziness, tingling, sensory change, focal weakness, weakness and headaches. Endo/Heme/Allergies: Does not bruise/bleed easily. Psychiatric/Behavioral: Negative for depression. Objective: One month post- op Chest X-ray is done and reviewed today. Residual small left pleural effusion and left basilar atelectasis. Physical Examination: Vitals:BP 120/70 Pulse 74 Resp 12 Ht 6' 1ANDquot; (1.85m) Wt 191 lb (86.6kg) SpO2 96% BMI 25.20 kg/(m2). Extended Vitals not filed for this encounter. Last 2 Encounter Wt Readings: Date: Wt: 12/19/2017 191 lb (86.6 kg) 11/21/2017 207 lb (93.9 kg) Physical Exam Constitutional: He is oriented to person, place, and time and well-developed, well-nourished, and in no distress. HENT: Head: Normocephalic. Eyes: Pupils are equal, round, and reactive to light. Cardiovascular: Normal rate, regular rhythm, S1 normal, S2 normal and intact distal pulses. No murmur heard. Pulmonary/Chest: Effort normal and breath sounds normal. No respiratory distress. He has no wheezes. Diminished left lower lobe Abdominal: Soft. Normal appearance and bowel sounds are normal. Musculoskeletal: He exhibits edema (LANDgt;R much improved from immediate post-op). Neurological: He is alert and oriented to person, place, and time. Skin: Skin is warm and intact. Midsternal incision clean dry, well approximated, no redness or drainage SVG site clean dry, no redness, drainage, or hematoma Sternum is stable no discernable malunion. Psychiatric: Mood and affect normal. Assessment and Plan: ASSESSMENT/PLAN: 1. S/P AVR (aortic valve replacement) - ICD9: V43.3, ICD10: Z95.2 (primary diagnosis) - C/W ASA, Metoprolol, lisinopril and atorvastatin - CONSULT TO CARD REHAB PHASE II To start in [place] next week 2. 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 ? 3. Atrial Fibrillation - Post operative - Regular pulse and rhythm with no extrasystoles heard. - NSR per ECG 12/04/2017 - D/C coumadin - Follow-up with Dr. Cummings ? 4. Urinary retention - Resolving, patient reports no difficulty with urination. - Tolerating lasix daily with out retention. 5. 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 Cummings or COOK SUPERVISOR ? 6. Hypertension - Controlled with BB and low-dose lisinopril In summary, Patient is doing well overall after the [facility]ABG sugery, with no major complaints. Patient is released to drive, work. Patient should start cardiac rehab from this point on. 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 Thanks. Electronically signed by Arnulfo Herndon CNP on December 19, 2017, 10:48 AM Referring Provider: ERIKA CEE [[id number]] Allergies As of Date: 12/19/2017 Noted Allergy Reaction PENICILLINS 10/22/2017 16 - Unknown SULFA (SULFONAMIDE ANTIBIOTICS) 10/22/2017 16 - Unknown Date Reviewed: 12/19/2017 Reviewed by: Arnulfo (Rao) Ramana - Fully Assessed Reason for Visit: Post-Op Visit [1236] Cmt: 11-08-17 CABG x 4 AVR Primary Visit Diagnosis:S/P AVR (aortic valve replacement) [Z95.2] Other Visit Diagnoses:S/P CABG x 4 [Z95.1] Primary hypertension [I10] Urinary retention [R33.9] Prescriptions as of 12/19/2017 Sig: LISINOPRIL 5 MG TABLET Take 1 tablet by mouth once d* METOPROLOL TARTRATE 50 MG TAB* Take 1 tablet by mouth twice * POTASSIUM CHLORIDE 20 MEQ ORA* Take 20 mEq by mouth once kristopher* FUROSEMIDE 20 MG TABLET Take 1 tablet by mouth once d* ASPIRIN 81 MG TABLET,DELAYED * Take 1 tablet by mouth once d* TAMSULOSIN 0.4 MG CAPSULE Take 0.4 mg by mouth once kristopher* ATORVASTATIN 40 MG TABLET Take 1 tablet by mouth daily * ACETAMINOPHEN 325 MG TABLET Take 1-2 tablets by mouth paty* Medication notes this encounter POTASSIUM CHLORIDE ER 20 MEQ TABLET,EXTENDED RELEASE(PART/CRYST) >> Andreas Kailee CODE INSPECTOR 12/19/2017 9:59 AM >> KAILEEANDREAS LPN [facility] Dec 19, 2017 9:59 AM duplicate WARFARIN 2 MG TABLET >> Andreas Kailee CODE INSPECTOR 12/19/2017 10:05 AM >> KAILEEMARSHARA GILBERTO [facility] Dec 19, 2017 10:05 AM duplicate CIPROFLOXACIN 500 MG TABLET >> Andreas Kailee CODE INSPECTOR 12/19/2017 10:06 AM >> KAILEEANDREAS LPN [facility] Dec 19, 2017 10:06 AM completed ATORVASTATIN 40 MG TABLET >> Andreas Kailee CODE INSPECTOR 12/19/2017 10:06 AM >> ANDREAS HERNANDEZ LPN [facility] Dec 19, 2017 10:06 AM Not taking SENNOSIDES-DOCUSATE SODIUM 8.6 MG-50 MG TABLET >> Andreas Kailee CODE INSPECTOR 12/19/2017 10:06 AM >> KAILEEANDREAS GILBERTO [facility] Dec 19, 2017 10:06 AM Not taking Problem List As Of Date 12/19/2017 Noted Resolved CAD (coronary artery disease) [I25.10] Aortic valve stenosis [I35.0] Mitral valve prolapse [I34.1] Essential hypertension, benign [I10] 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 - Please begin cardiac rehab. - Weight bearing restriction remains: No lifting more than 10 lbs. You may begin to gradually increase the amount of weight bearing. Cardiac rehab will help with this. - Please see your woven blind loom tender regularly. They will take over medication management. - Please feel free to call us if you have any post-operative concerns. Thank you for coming to see me today!! Arnulfo Herndon CNP Medications Discontinued During This Encounter warfarin (COUMADIN) 2 mg tablet 12/05/2017 12/19/2017 Class: Historical Med Sig: Disc: Reason for discontinue is not on file. senna-docusate (SENNA-S) 8.6-50 mg p* 11/16/2017 12/19/2017 Class: OTC Route: ORAL Sig: Take 1 tablet by mouth once daily as needed for Constipation. Disc: Reason for discontinue is not on file. potassium chloride ER (K-HOLLY ALTAMIRANO-C* 11/22/2017 12/19/2017 Class: Historical Med Sig: Disc: Reason for discontinue is not on file. ciprofloxacin HCl (CIPRO) 500 mg tab* 0 11/23/2017 12/19/2017 Class: Historical Med Route: ORAL Sig: Take 500 mg by mouth twice daily. Disc: Reason for discontinue is not on file. Disposition: Return if symptoms worsen or fail to improve. Follow-up and Disposition History Recorded Encounter Status:Closed by ARNULFO HERNDON CNP on 12/19/17 ALLERGIES ALLERGIES DATE TYPE / CODE NAME / CODE REACTION SEVERITY SOURCE 10/24/2018 Drug Penicillins/E00900 Rash Unknown [place] Allergy/416 0476(RXNORM) [facility] 832402([facility] ED CT) Repository 10/24/2018 Drug Sulfa (Sulfonamide Unknown Unknown [place] Allergy/416 Antibiotics)/F0010 [facility] 381960([facility] 26051(RXNO) [facility] ED CT) Repository 10/24/2018 Drug metoprolol/S103401 Unknown SV [place] Allergy/416 627(RXNORM) [facility] 017186([facility] ED CT) Repository 10/22/2017 Drug PENICILLINS UNKNOWN [facility] Class/53412 Other [place] 1003(SNOMED Repository CT) 10/22/2017 Drug SULFA (SULFONAMIDE UNKNOWN [facility] Class/57897 ANTIBIOTICS) Other [place] 100(SNOMED Repository CT) NG/36626900 PENICILLINS [facility] 6(SNOMED [facility]) Repository NG/88614325 SULFA (SULFONAMIDE [facility] 6(SNOMED ANTIBIOTICS) Health System CT) Repository ENCOUNTERS ENCOUNTERS ADMIT/DISCHARGE ACCOUNT NUMBER ADMITTING ENCOUNTER LOCATION SOURCE CLASS 11/04/2018 [id number] [facility] ding:LAB Repository 10/27/2018/10/27/20 [id number] Ambulatory BMSBuilding: [place] 18 BMS.[facility] Repository 09/17/2018 [id number] Ambulatory BMSBuilding: [place] BMS.[facility] Repository 04/04/2018 [id number] Ambulatory [facility] ding:CR Repository 03/17/2018/03/24/20 [id number] Ambulatory [address] ding:CR Repository 03/14/2018/03/14/20 [id number] Ambulatory BMSBuilding: [place] 18 BMS.[facility] Repository 03/11/2018 [id number] Ambulatory [facility] Repository 03/10/2018 [id number] Ambulatory [facility] ding:LAB Repository 02/21/2018/02/23/20 [id number] Ambulatory [facility] [place] 18 [facility] ding:CR Repository 01/27/2018/01/28/20 [id number] Ambulatory BMSBuilding: [facility] 18 BMS.[facility] Repository 01/22/2018/01/22/20 [id number] Ambulatory Shiv Shiv [address] [place] [address] ding:CR Repository 12/27/2017 [id number] [facility] 12/23/2017 [id number] Ambulatory BMS [facility] Repository 12/19/2017/12/19/19 [id number] Ambulatory [address] Repository 12/19/2017/12/19/19 [id number] Ambulatory [address] MEDICAL Repository CENTERBuildi ng:AGVASACC PAYERS PAYERS ENCOUNTER GUARANTOR PAYER SUBSCRIBER SOURCE 11/04/2018 CERDA G Primary CERDA G ACKERDOB: [facility] [id number] Insurance:MEDICARE [id number] Community BLOUGH PART A BPolicy Number: [place], [place] [id number] Repository [address]31Xzo: 330) Date:2018-11-04 [phone] () 11/04/2018 Secondary CERDA G ACKERDOB: Sh[facility] Insurance:ANTHEMPolicy [id number] [facility] Number: Hospital [id number] Repository Date:3550-23-20[address] [address]IR: 11/04/2018 Tertiary NOT GIVENUNK [facility] Insurance:SELF PAY [facility] Number: Effective Repository Date:2018-11-04 10/27/2018 CERDA G Primary CERDA G ACKERDOB: [place] [id number] Insurance:MEDICARE [id number] Community BLOUGH PART A BPolicy Number: [place], [place] [id number] Repository [address]Xfr: (330) Date:2018-03-14 [phone] () 10/27/2018 Secondary CERDA G ACKERDOB: Sh[facility] Insurance:ANTHEMPolicy [id number] Community Number: [facility] [id number] Repository Date:7913-21-67ZL [address] [place] [address]GG: 10/27/2018 Tertiary NOT GIVENUNK [facility] Insurance:SELF PAY Community [facility] Number: Effective Repository Date:2018-10-27 09/17/2018 CERDA G Primary CERDA G ACKERDOB: [place] [id number] Insurance:MEDICARE [id number] Community BLOUGH PART A BPolicy Number: [place], [place] [id number] Repository [address]Vmj: (716) Date:2018-03-14 [phone] () 09/17/2018 Secondary CERDA G ACKERDOB: [place] Insurance:ANTHEMPolicy [id number] Community Number: [facility] [id number] Repository Date:4981-18-29VC [address] [address]BD: 09/17/2018 Tertiary NOT GIVENUNK [place] Insurance:SELF PAY [facility] Number: Effective Repository Date:2018-03-14 04/04/2018 CERDA G Primary CERDA G ACKERDOB: [facility] [id number] Insurance:MEDICARE [id number] Community BLOUGH PART A BPolicy Number: [place], [place] [id number] Repository 287[address]Spr: (330) Date:2017-12-27 [phone] () 04/04/2018 Secondary CERDA G ACKERDOB: Sh[facility] Insurance:ANTHEMPolicy [id number] Community Number: [facility] [id number] Repository Date:4812-94-90YD [address], [place] [address]AV: 04/04/2018 Tertiary NOT GIVENUNK [facility] Insurance:SELF PAY Community [facility] Number: Effective Repository Date:2018-03-25 03/17/2018 CERDA G Primary CERDA G ACKERDOB: [place] [id number] Insurance:MEDICARE [id number] Community BLOUGH PART A BPolicy Number: [place], [place] [id number] Repository [address]Lin: (330) Date:2017-12-27 [phone] () 03/17/2018 Secondary CERDA G ACKERDOB: Sh[facility] Insurance:ANTHEMPolicy [id number] Community Number: [facility] [id number] Repository Date:9602-61-37CT [address], [place] [address]UY: 03/17/2018 Tertiary NOT GIVENUNK [facility] Insurance:SELF PAY Community [facility] Number: Effective Repository Date:2018-02-23 03/14/2018 CERDA G Primary CERDA G ACKERDOB: [facility] [id number] Insurance:MEDICARE [id number] Community BLOUGH PART A BPolicy Number: [place], [place] [id number] Repository [address]Fsw: (330) Date:2018-01-27 [phone] () 03/14/2018 Secondary CERDA G ACKERDOB: Sh[facility] Insurance:ANTHEMPolicy [id number] Community Number: [facility] [id number] Repository Date:1197-35-81BV [address], [place] [address]FC: 03/14/2018 Tertiary NOT GIVENUNK [facility] Insurance:SELF PAY [facility] Number: Effective Repository Date:2018-03-14 03/11/2018 CERDA G Primary CERDA G ACKERDOB: [facility] [id number] Insurance:MEDICARE [id number] Community BLOUGH PART A BPolicy Number: [place], [place] [id number] Repository [address]Puz: (330) Date:2018-03-11 [phone] () 03/11/2018 Secondary CERDA G ACKERDOB: Sh[facility] Insurance:ANTHEMPolicy [id number] Community Number: [facility] [id number] Repository Date:9889-76-92[address], [place] [address]NC: 03/11/2018 Tertiary NOT GIVENUNK [facility] Insurance:SELF PAY Community [facility] Number: Effective Repository Date:2018-03-11 03/10/2018 CERDA G Primary CERDA G ACKERDOB: [place] [id number] Insurance:MEDICARE [id number] Community BLOUGH PART A BPolicy Number: [place], [place] [id number] Repository [address]Uyo: (330) Date:2018-03-10 [phone] () 03/10/2018 Secondary CERDA G ACKERDOB: [place] Insurance:ANTHEMPolicy [id number] Community Number: [facility] [id number] Repository Date:9777-36-16GN [address] [place] [address]HP: 03/10/2018 Tertiary NOT GIVENUNK Sh[facility] Insurance:SELF PAY [facility] Number: Effective Repository Date:2018-03-10 02/21/2018 CERDA G Primary CERDA G ACKERDOB: [place] [id number] Insurance:MEDICARE [id number] Community BLOUGH PART A BPolicy Number: [place], [place] [id number] Repository 369[address]Set: (330) Date:2017-12-27 [phone] (HP) 02/21/2018 Secondary CERDA G ACKERDOB: Sh[facility] Insurance:ANTHEMPolicy [id number] Community Number: [facility] [id number] Repository Date:9984-07-69SM [address] [place] [address]DM: 02/21/2018 Tertiary NOT GIVENUNK [facility] Insurance:SELF PAY Community [facility] Number: Effective Repository Date:2018-01-23 01/27/2018 CERDA G Primary CERDA G ACKERDOB: [place] [id number] Insurance:MEDICARE [id number] Community BLOUGH PART A BPolicy Number: [place], [place] [id number] Repository [address]Nth: (330) Date:2018-01-10 [phone] (HP) 01/27/2018 Secondary CERDA G ACKERDOB: Sh[facility] Insurance:ANTHEMPolicy [id number] Community Number: [facility] [id number] Repository Date:0943-65-54AC [address], [place] [address]RY: 01/27/2018 Tertiary NOT GIVENUNK [facility] Insurance:SELF PAY Community [facility] Number: Effective Repository Date:2018-01-10 01/22/2018 CERDA G Primary CEDRA G ACKERDOB: [facility] [id number] Insurance:MEDICARE [id number] Community BLOUGH PART A BPolicy Number: [place], [place] [id number] Repository [address]Fsp: (330) Date:2017-12-27 [phone] (HP) 01/22/2018 Secondary CERDA G ACKERDOB: [place] Insurance:ANTHEMPolicy [id number] Community Number: [facility] [id number] Repository Date:4243-60-17TC [address]XJD[place], [place] [address]JU: 01/22/2018 Tertiary NOT GIVENUNK Sh[facility] Insurance:SELF PAY Community [facility] Number: Effective Repository Date:2017-12-27 12/27/2017 Cerda [id number] Primary Cerda AckerDOB: [place] Insurance:ANTHEMPolicy [id number] [facility] [place] Number: [facility] [address]Lwg: (330) [id number] Repository [phone] (HP) Date:2075-68-65LE [address], [place] [address]HP: 12/27/2017 Secondary Cerda AckerDOB: [place] Insurance:MEDICARE [id number] Community PART A BPolicy Number: Hospital [id number] Repository Date:2017-12-18 12/27/2017 Tertiary NOT GIVENUNK [place] Insurance:SELF PAY Community [facility] Number: Effective Repository Date:2017-12-18 12/23/2017 Cerda [id number] Primary Cerda AckerDOB: [place] Insurance:ANTHEMPolicy [id number] [facility] [place] Number: [facility] [address]Hta: (330) [id number] Repository [phone] (HP) Date:9254-89-94AD [address]ZQE[address], [place] [address]IK: 12/23/2017 Secondary Cerda AckerDOB: Shiv Insurance:MEDICARE [id number] Community PART A BPolicy Number: Hospital [id number] Repository Date:2017-12-23 12/23/2017 Tertiary NOT GIVENUNK [place] Insurance:SELF PAY Community [facility] Number: Effective Repository Date:2017-12-23 12/19/2017 ZAIDA G Primary CERDA G ACKERDOB: [facility] ACKERDOB: Insurance:MEDICARE A [id number] [id number] AND BPolicy Number: Repository [facility] [id number] [place] Date: [address]Kfq: () 12/19/2017 Secondary CERDA G ACKERDOB: [facility] Insurance:ANTHEM [id number] [facility] MEDICARE Repository SUPPLEMENTPolicy Number: [id number] Date:
== END ==
PROVIDERS: Family Provider Family Medicine; PCP Family Medicine; Referring Provider Internal Medicine Cardiovascular Disease; Visit Provider Internal Medicine Cardiovascular Disease
DX: I25.10 Atherosclerotic heart disease of native coronary artery without angina pectoris (principal)
CPT/HCPCS: 36415; 80061; 80076

== ENCOUNTER → 2019-06-04 13:42 | Outpatient (CLI) | payer MEDICARE, BC, SELFPAY ==
[2019-05-21 13:16] VITALS: BMI 28.2
--- NOTE | 2019-06-04 13:44 | ECHOD_ITS ---
Reason For Study: VALVE REPL Procedure This was a 2D Doppler, Color Flow transthoracic echocardiogram. Exam performed in department. Left Ventricle Moderate concentric left ventricular hypertrophy. The estimated ejection fraction is 75 %. Stage 2 diastolic dysfunction. No regional wall motion abnormalities noted. Right Ventricle Moderately dilated right ventricle. Normal systolic function. Atria Normal left atrium. Normal right atrium. Hypermobile atrial septum. Mitral Valve Mild diffuse mitral valve thickening. Trivial mitral valve insufficiency. Tricuspid Valve Normal tricuspid valve. Mild (1+) tricuspid valve insufficiency. Right ventricular systolic pressure estimated to be 40 mmHg. Mild pulmonary hypertension. Aortic Valve Peak aortic valve gradient 21 mmHg. Mean aortic valve gradient 11 mmHg. Stable appearing bioprosthetic aortic valve apparatus. Pulmonic Valve Normal pulmonic valve. Trivial pulmonic valve insufficiency. Great Vessels Calcified aortic root. Normal arch. Normal inferior vena cava. Inferior vena cava collapse with sniff. Pericardium/Pleural No pericardial effusion. MMode/2D Measurements & Calculations LVIDd: 3.6 cm IVSd: 1.5 cm LVOT diam: 2.0 cm LVIDs: 1.7 cm LVPWd: 1.5 cm LVOT area: 3.2 cm2 RVDd: 4.5 cm FS: 54.0 % Ao root diam: 3.7 cm LAV(MOD-bp): 52.7 ml LA A4 area: 14.5 cm2 LAV(MOD-bp) Indexed: 24.0 ml/m2 LAV(MOD-sp2): 76.0 ml LAV(MOD-sp4): 33.0 ml LA dimension(2D): 4.4 cm RA A4 area: 15.6 cm2 Time Measurements MV dec time: 0.26 sec Doppler Measurements & Calculations MV E max zaid: 88.5 cm/sec Lat Peak E' Zaid: 7.7 cm/sec Med Peak E' Zaid: 4.5 cm/sec MV A max zaid: 68.2 cm/sec E/E' lat: 11.6 E/E' med: 19.6 MV E/A: 1.3 Ao V2 max: 227.2 cm/sec LV V1 max: 94.3 cm/sec SV(LVOT): 61.1 ml Ao max P.8 mmHg LV V1 max P.6 mmHg Ao V2 mean: 156.3 cm/sec LV V1 mean P.1 mmHg Ao mean P.8 mmHg LV V1 mean: 69.6 cm/sec Ao V2 VTI: 39.1 cm LV V1 VTI: 19.2 cm NATI(I,D): 1.6 cm2 NATI(V,D): 1.3 cm2 PA V2 max: 136.3 cm/sec TR max zaid: 275.6 cm/sec TR max P.5 mmHg Interpretation Summary Moderate concentric left ventricular hypertrophy. The estimated ejection fraction is 75 %. Stage 2 diastolic dysfunction. Moderately dilated right ventricle. Hypermobile atrial septum. Trivial mitral valve insufficiency. Mild (1+) tricuspid valve insufficiency. Right ventricular systolic pressure estimated to be 40 mmHg. Mild pulmonary hypertension. Stable and normal appearing bioprosthetic aortic valve apparatus. Compared to echo report dated 09/10/2017, LV Function has remained the same, but picayune aortic valve has been replaced with #23 [place] Trifecta Bovine valve with normal bioprosthetic aortic valvular gradients. Ordering Physician: Darin Cummings Referring Physician: ERIKA CEE Performed By: Antonia Bethea, NENA, RVT
== END ==
PROVIDERS: Family Provider Family Medicine; PCP Family Medicine; Referring Provider Internal Medicine Cardiovascular Disease; Visit Provider Internal Medicine Cardiovascular Disease
DX: I35.0 Nonrheumatic aortic (valve) stenosis (principal); Z95.2 Presence of prosthetic heart valve; Z95.1 Presence of aortocoronary bypass graft; J44.9 Chronic obstructive pulmonary disease, unspecified; I25.10 Atherosclerotic heart disease of native coronary artery without angina pectoris
CPT/HCPCS: 93306

== ENCOUNTER → 2019-06-10 07:07 | Outpatient (CLI) | payer MEDICARE, BC, SELFPAY ==
[2019-05-21 13:16] VITALS: BMI 28.2
[2019-06-10 10:53] LABS: AST(SGOT) 26 U/L (15-37); Alanine Aminotransfer ALT/SGPT 34 U/L (16-61); Albumin, Serum 3.7 g/dL (3.2-5.0); Alkaline Phosphatase 61 U/L (45-117); Bilirubin, Direct 0.14 mg/dL (0.00-0.30); Cholesterol 107 mg/dL (200); Globulin 3.2 g/dL (2.2-4.2); High Density Lipoprotein 20 mg/dL; Protein, Total 6.9 g/dL (6.4-8.2); Triglycerides 65 mg/dL; Very Low Density Lipoprotein 13 mg/dL (5-40)
== END ==
PROVIDERS: Family Provider Family Medicine; PCP Family Medicine; Referring Provider Internal Medicine Cardiovascular Disease; Visit Provider Internal Medicine Cardiovascular Disease
DX: I25.10 Atherosclerotic heart disease of native coronary artery without angina pectoris (principal); E78.5 Hyperlipidemia, unspecified
CPT/HCPCS: 36415; 80061; 80076

== ENCOUNTER → 2020-04-19 07:54 | Outpatient (CLI) | payer MEDICARE, BC, SELFPAY ==
[2020-04-07 10:55] VITALS: BMI 27.4
[2020-04-19 09:43] LABS: AST(SGOT) 30 U/L (15-37); Alanine Aminotransfer ALT/SGPT 35 U/L (16-61); Albumin, Serum 3.7 g/dL (3.2-5.0); Alkaline Phosphatase 60 U/L (45-117); Bilirubin, Direct 0.17 mg/dL (0.00-0.30); Cholesterol 82 mg/dL (200); Globulin 3.4 g/dL (2.2-4.2); High Density Lipoprotein 19 mg/dL; Protein, Total 7.1 g/dL (6.4-8.2); Triglycerides 95 mg/dL; Very Low Density Lipoprotein 19 mg/dL (5-40)
== END ==
PROVIDERS: PCP Family Medicine; Referring Provider Internal Medicine Cardiovascular Disease; Visit Provider Internal Medicine Cardiovascular Disease
DX: E78.00 Pure hypercholesterolemia, unspecified (principal)
CPT/HCPCS: 36415; 80061; 80076

== ENCOUNTER → 2020-07-14 12:59 | Outpatient (CLI) | payer MEDICARE, BC, SELFPAY ==
[2020-04-07 10:55] VITALS: BMI 27.4
--- NOTE | 2020-07-14 13:01 | ECHOD_ITS ---
Reason For Study: VALVE REPL Procedure This was a 2D Doppler, Color Flow transthoracic echocardiogram. Exam performed in department. Left Ventricle Moderate concentric left ventricular hypertrophy. The estimated ejection fraction is 75 %. Stage 2 diastolic dysfunction. No regional wall motion abnormalities noted. Right Ventricle Moderately dilated right ventricle. Normal systolic function. Atria The left atrium is moderately enlarged. The right atrium is moderately enlarged. Normal atrial septum. Mitral Valve The mitral valve is structurally normal. No prolapse or stenosis seen. Trivial mitral valve insufficiency. Tricuspid Valve Normal tricuspid valve. Mild (1+) tricuspid valve insufficiency. Right ventricular systolic pressure estimated to be 41 mmHg. Mild pulmonary hypertension. Aortic Valve Peak aortic valve gradient 31 mmHg. Mean aortic valve gradient 17 mmHg. Stable appearing bioprosthetic aortic valve apparatus. Pulmonic Valve Normal pulmonic valve. Trivial pulmonic valve insufficiency. Great Vessels Normal aortic root. Normal arch. Normal inferior vena cava. Inferior vena cava collapse with sniff. Pericardium/Pleural No pericardial effusion. MMode/2D Measurements & Calculations LVIDd: 3.9 cm IVSd: 1.4 cm LVOT diam: 2.0 cm LVIDs: 2.4 cm LVPWd: 1.6 cm LVOT area: 3.0 cm2 RVDd: 4.9 cm FS: 38.9 % Ao root diam: 3.4 cm LAV(MOD-bp): 84.7 ml LVAd ap4: 35.0 cm2 LAV(MOD-bp) Indexed: 38.2 ml/m2 EDV(MOD-sp4): 111.8 ml LAV(MOD-sp2): 120.0 ml EDV(sp4-el): 118.6 ml LAV(MOD-sp4): 59.9 ml LVAs ap4: 15.3 cm2 ESV(MOD-sp4): 28.5 ml ESV(sp4-el): 26.6 ml EF(MOD-sp4): 74.5 % EF(sp4-el): 77.6 % SV(MOD-sp4): 83.4 ml SV(sp4-el): 92.1 ml LA A4 area: 22.0 cm2 LA dimension(2D): 4.3 cm RA A4 area: 21.6 cm2 Time Measurements MV dec time: 0.28 sec Doppler Measurements & Calculations MV E max zaid: 96.3 cm/sec Lat Peak E' Zaid: 4.8 cm/sec Med Peak E' Zaid: 3.8 cm/sec MV A max zaid: 83.8 cm/sec E/E' lat: 19.9 E/E' med: 25.3 MV E/A: 1.1 MV V2 max: 105.3 cm/sec Ao V2 max: 278.8 cm/sec LV V1 max: 115.5 cm/sec MV max P.4 mmHg Ao max P.1 mmHg LV V1 max P.3 mmHg MV V2 mean: 63.2 cm/sec Ao V2 mean: 197.7 cm/sec LV V1 mean P.4 mmHg MV mean P.8 mmHg Ao mean P.4 mmHg LV V1 mean: 88.3 cm/sec MV V2 VTI: 31.6 cm Ao V2 VTI: 59.2 cm LV V1 VTI: 24.9 cm MVA(VTI): 2.4 cm2 NATI(I,D): 1.3 cm2 NATI(V,D): 1.3 cm2 SV(LVOT): 76.0 ml PA V2 max: 101.9 cm/sec TR max zaid: 298.4 cm/sec TR max P.7 mmHg MV P1/2t-pr_phl: 98.2 msec Interpretation Summary The estimated ejection fraction is 75 %. Stage 2 diastolic dysfunction. Moderately dilated right ventricle. The left atrium is moderately enlarged. Trivial mitral valve insufficiency. Mild (1+) tricuspid valve insufficiency. Right ventricular systolic pressure estimated to be 41 mmHg. Mild pulmonary hypertension. Stable appearing and normal functioning bioprosthetic aortic valve apparatus. Peak aortic valve gradient 31 mmHg. Mean aortic valve gradient 17 mmHg. Compared to echo report dated 06/04/2019, no appreciable changes noted. Ordering Physician: Darin Cummings Referring Physician: ERIKA CEE Performed By: Antonia Bethea, NENA, RVT
== END ==
PROVIDERS: PCP Family Medicine; Referring Provider Internal Medicine Cardiovascular Disease; Visit Provider Internal Medicine Cardiovascular Disease
DX: I34.1 Nonrheumatic mitral (valve) prolapse (principal)
CPT/HCPCS: 93306

== ENCOUNTER 2021-12-06 14:00 | Emergency (ER) | payer MEDICARE, BC, SELFPAY ==
[2021-12-06] VITALS (7 sets, daily range): BP systolic 137–160; BP diastolic 60–79; PULSE 70–84; RESP 16–23; TEMP 36.4–36.6; O2SAT 90–96; BMI 27.3
--- NOTE | 2021-12-06 14:17 | EKG12_ITS ---
Test Reason : SOB Blood Pressure : / mmHG Vent. Rate : 074 BPM Atrial Rate : 074 BPM P-R Int : 222 ms QRS Dur : 092 ms QT Int : 372 ms P-R-T Axes : 098 -40 118 degrees QTc Int : 412 ms Sinus rhythm with 1st degree A-V block Left axis deviation Voltage criteria for left ventricular hypertrophy Inferior infarct , age undetermined Abnormal ECG Confirmed by NADIYA FRENCH, DEDE ([id number]), health editor YASH ZELAYA ([id number]) on 12/07/2021 1:40:34 PM Referred By: PL Confirmed By:MIGUEL ANGEL HEARN MD
--- NOTE | 2021-12-06 14:18 | EX.ED.DYSGE1 ---
HPI History of Present Illness Chief Complaint: Shortness of Breath Informant: patient and family Narrative Narrative: Patient comes in evaluation for complaints of generalized weakness, dyspnea and positive COVID home test this morning. They contacted their physician who referred him here for possible pneumonia and set up with monoclonal therapy. Patient started symptoms yesterday morning. He has malaise, some mild sore throat, nasal congestion, mild rare cough He states he is really not short of breath. However,. His appetite is still good. He has no nausea vomiting diarrhea. they have been checking his oxygen at home. He will be about 90 sitting still. They have gotten him as low as 88. It was about 93 with sitting up and a little bit more activity though. No fevers. He also has a history of COPD but is not on routine inhalers. He has been on them before. Patient is not on home oxygen. He has a history of heart disease and aortic valve replacement. atrial fibrillation after his cardiac surgery 10 years ago but has not been anticoagulated on anything other than aspirin for many years. He is not having chest pain, sputum, hemoptysis, leg pain or swelling. He has never had DVT or PE. [facility] Medical History (Updated 12/06/21 @ 17:[address] 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 Nonrheumatic aortic (valve) stenosis Nonrheumatic mitral (valve) prolapse Pulmonary valve insufficiency Home Medications tamsulosin 0.4 mg PO DAILY 01/12/14 [History Last Taken 10/09/17] aspirin 81 mg PO DAILY@0800 10/08/17 [History Last Taken 10/09/17] clindamycin HCl 300 mg capsule 600 mg PO .COMPLEX PRN cap 08/15/20 [History Last Taken Unknown] furosemide 40 mg tablet 40 mg PO DAILY #90 tab 12/04/21 [Rx Last Taken Unknown] metoprolol tartrate 50 mg tablet 50 mg PO BID #180 tab 12/04/21 [Rx Last Taken Unknown] dexamethasone [Decadron] 6 mg PO DAILY #9 tab 12/06/21 [Rx Last Taken Unknown] Allergy/AdvReac Type Severity Reaction Status Date / Time Penicillins Allergy Rash Verified 12/06/21 14:05 Sulfa (Sulfonamide Allergy Unknown Verified 12/06/21 14:05 Antibiotics) Family History Father CAD (coronary artery disease) Mother Breast cancer Brother Suicide Surgical History H/O aortic valve replacement (11/08/17) 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) Social History Smoking Status: Former smoker alcohol intake: never substance use type: does not use caffeine: No what type of physical activity do you participate in: other details: therapy frequency: 3-4 times per week duration: 45-60 minutes/day do you feel safe at home: Yes ROS ROS ED Constitutional Constitutional ED: Reports fever(s) and subjective Eyes Eyes: Denies blurry vision ENT ENT ED: Reports rhinorrhea and sore throat Cardiovascular Cardiovascular: Denies chest pain, palpitations or racing heartbeat Respiratory/Chest Respiratory/Chest: Reports cough; Denies dyspnea Gastrointestinal Gastrointestinal: Denies nausea or vomiting Genitourinary Genitourinary ED: Denies dysuria Musculoskeletal Musculoskeletal: Reports myalgias Integumentary Denies rash Neurologic Neurologic: Denies headache(s) or weakness Psychiatric Psychiatric: Denies depression Endocrine Endocrinology: Denies polydipsia or polyuria Allergic/Immunologic Allergic/Immunologic ED: Denies mouth swelling or urticaria EXAM Physical Exam Const Vital Signs: 12/06/21 14:01 12/06/21 14:42 12/06/21 16:00 Temperature 97.6 F L Temperature Source Temporal Pulse Rate 84 70 Respiratory Rate 16 17 Respiratory Effort Short of Breath Respiratory Depth Normal Respiratory Pattern Normal Blood Pressure 158/79 H 142/67 H Blood Pressure Mean 105 92 Pulse Ox 92 96 Oxygen Delivery Method Room Air Nasal Cannula Nasal Cannula Oxygen Flow Rate (L/min) 2 2 12/06/21 16:02 12/06/21 17:12 12/06/21 18:29 Temperature 98 F Temperature Source Oral Pulse Rate 70 73 74 Respiratory Rate 17 16 23 H Respiratory Effort Respiratory Depth Respiratory Pattern Blood Pressure 142/67 H 137/60 H 160/68 H Blood Pressure Mean 92 85 Pulse Ox 96 93 94 Oxygen Delivery Method Nasal Cannula Nasal Cannula Oxygen Flow Rate (L/min) 2 2 Positive well nourished and well developed General Appearance ED: well developed and NAD; Negative for cyanotic or diaphoretic HEENT Reports moist mucous membranes Negative for trauma or tenderness Eyes PERRL Neck no lymphadenopathy and no JVD Chest Wall inspection of chest normal Resp normal respiratory effort Resp Narrative: Patient has a hint of expiratory wheeze with a deep breath. He has a few mild rhonchi bilaterally. No rales. No pain with a deep breath. Effort and Inspection: Negative for pain with movement Auscultation: rhonchi and wheezes; Negative for rales Cardio regular rate and regular rhythm GI normal to inspection, nondistended, normoactive bowel sounds and non-tender Palpation: soft Extremity normal to inspection General Extremety ED: Negative for edema or tenderness General Extremity: Negative for edema Neuro oriented x3 Neuro Narrative: Mildly hard of hearing. Otherwise normal. Sensorium / Orientation: alert Psych mental status grossly normal Skin no rashes or lesions noted MDM MDM MDM Narrative Medical decision making narrative: On my initial visit, I placed the patient on the oxygen saturation. He was anywhere 90-93 sitting in bed. When I was having him walk in the room he did hit his low was 88%. He generally stayed at the 88 to 90% range while moving. However he did not feel dyspneic or feel ill. X-ray shows some mild infiltrate. This is more consistent with COVID. His COVID is positive. White count is minimally up. Electrolytes show mild dehydration. Troponin is negative. Although the patient is not actually dyspneic, he does drop his saturations to about 88 with ambulation. On 2 L he does fine and stays well above 90. We will get him home on oxygen. Because of his new need for oxygen, he does not meet criteria for monoclonal therapy. I will get him home on Decadron though. We discussed reasons to return. They also do have an oxygen saturation measurement capability at home and we discussed the use of this and returning. Lab Data Attestation: I reviewed the patient's lab results. Labs: Laboratory Results - last 24 hr 12/06/21 12/06/21 14:30 14:30 WBC 13.3 H RBC 4.57 L Hgb 14.2 Hct 43.7 MCV 95.6 H MCH 31.1 MCHC 32.5 RDW Std Deviation 62.3 H RDW Coeff of Oliver 17.9 H Plt Count 482 H MPV 11.7 Immature Gran % (Auto) 1.900 H Neut % (Auto) 78.6 H Lymph % (Auto) 5.8 L Lassen % (Auto) 11.1 H Eos % (Auto) 1.1 Baso % (Auto) 1.5 H Absolute Neuts (auto) 10.5 H Absolute Lymphs (auto) 0.77 L Nucleated RBC % 0 Sodium 139 Potassium 3.9 Chloride 106 Carbon Dioxide 27.0 Anion Gap 6 BUN 33 H Creatinine 1.46 H Estim Creat Clear Calc 44.57 Est GFR (MDRD) Af Amer 59 L Est GFR (MDRD) Non-Af 49 L BUN/Creatinine Ratio 22.6 H Glucose 121 H Calcium 8.9 Troponin I High Sens 46 Radiography Diagnostic Testing: Clinical Impression(s) from Imaging Studies Chest X-Ray 12/06/21 14:55 IMPRESSION: Mild degree of bibasilar patchy infiltrates worse on the left lung base. Electronically Signed: Jules Brunson MD at 15:24 EST , Service support , EKG Initial EKG: Comments: . EKG done for cough and history of coronary artery disease with weakness. EKG read by me shows sinus rhythm with first-degree AV block and overall rate of 74. No ventricular ectopy. He does have signs of LVH with diffuse ST and T wave changes. However, these are not too dissimilar from 07/14/2015. No sign of acute infarct or ischemia. GA interval is long. QRS duration and QTC normal. Discharge Plan Triage Chief Complaint: Shortness of Breath ED Provider: Patric Moralez Dx/Rx/DC Orders Clinical Impression: Pneumonia due to 2019 novel coronavirus, Hypoxia Instructions: Coronavirus Disease 2019 (COVID-19): Caring for Yourself or Others Prescriptions: New dexamethasone [Decadron] 6 mg tablet 6 mg PO DAILY Qty: 9 RF: 0 No Action clindamycin HCl 300 mg capsule 600 mg PO .COMPLEX PRNRF: 0 tamsulosin 0.4 MG capsule 0.4 mg PO DAILY RF: 0 aspirin 81 MG tablet 81 mg PO DAILY@0800 RF: 0 furosemide 40 mg tablet 40 mg PO DAILY Qty: 90 RF: 3 metoprolol tartrate 50 mg tablet 50 mg PO BID Qty: 180 RF: 3 Primary Care Provider: Georgi Osborne Referrals: Georgi Osborne MD [Primary Care Provider] - 10-14 Days if not better Disposition Disposition: Home, Self Care Discharge Date/Time: 12/06/21 20:48
[2021-12-06] MEDS: Ipratropium/Albuterol Sulfate 3 ML AMPUL.NEB INHALATION (14:33)
[2021-12-06] MEDS: dexAMETHasone 10 MG/ML Vial 6 MG IV (14:34)
[2021-12-06 14:49] LABS: Absolute Lymphocyte Count 0.77 X10^3/uL (0.83-4.51); Absolute Neutrophil Count 10.5 X10^3/uL (2.0-7.7); Basophil% 1.5 % (0-1); Eosinophil# 0.14 X10^3/uL; Eosinophils% 1.1 % (0-5); Hematocrit 43.7 % (40-54); Hemoglobin 14.2 g/dL (13.0-16.5); Lymphocyte # 0.77 X10^3/ul (0.83-4.51); Lymphocyte % 5.8 % (19-41); Mean Corp Hgb Conc 32.5 g/dL (32-36); Mean Corpuscular Hgb 31.1 pg (27.0-32.0); Mean Corpuscular Volume 95.6 fL (80-94); Mean Platelet Vol. 11.7 fl (6.2-12.0); Monocyte# 1.47 X10^3/uL; Monocyte% 11.1 % (0-10); NRBC Flagged by Analyzer 0 % (0-5); Neutrophil # 10.45 X10^3/uL (2.7-7.7); Neutrophil % 78.6 % (47-70); Platelet Count 482 K/mm3 (150-450); RBC Distribution Width CV 17.9 % (11.6-14.6); RBC Distribution Width SD 62.3 fl (35.1-43.9); Red Blood Count 4.57 M/mm3 (4.6-6.2); White Blood Count 13.3 K/mm3 (4.4-11.0)
--- NOTE | 2021-12-06 14:55 | RAD_ITS ---
STUDY: X-RAY CHEST REASON FOR EXAM: Male, 81 years old. Cough, covid TECHNIQUE: Single AP portable view of the chest. COMPARISON: Comparison is made with prior study dated 09/19/2017. FINDINGS: EKG electrodes are seen. Stable scarring of both lung apices slightly worse on the right side. Mild bibasilar pulmonary infiltrates slightly worse on the left side. There is no demonstrated pleural abnormality. Sternal cerclage wires and vascular clips are present from a prior sternotomy and coronary artery bypass graft procedure (CABG). Normal mediastinum and anirudh. Normal visualized pulmonary arteries. There is atherosclerotic calcification of the aortic arch with tortuosity. There are diffuse degenerative changes of the visualized thoracic spine. Normal visualized ribs, clavicles, and shoulders. There is no demonstrated abnormality of the visualized soft tissue structures of the upper abdomen. RAD/Chest 1 View (Portable) IMPRESSION: Mild degree of bibasilar patchy infiltrates worse on the left lung base. Electronically Signed: Jules Brunson MD at 15:24 EST , Service support ,
[2021-12-06 15:01] LABS: Anion Gap 6 (5-15); BUN 33 mg/dL (7-18); BUN/Creat Ratio 22.6 RATIO (10-20); Calcium,Total 8.9 mg/dL (8.5-10.1); Chloride 106 mmol/L (98-107); Creatinine, Serum 1.46 mg/dL (0.70-1.30); EST Glomerular Filtration Rate 49 mL/min (>60); Est Glom Filt Rate - Afr Amer 59 mL/min (>60); Estimated Creatinine Clearance 44.57 ml/min; Glucose 121 mg/dL (74-106); Potassium 3.9 mmol/L (3.5-5.1); Sodium Level 139 mmol/L (136-145); Troponin-I HS 46 pg/mL (3.0-78.0)
--- NOTE | 2021-12-06 16:22 | CM.ED ---
SOCIAL WORK Referral for COVID-19 positive, requiring home O2. [employer] out of portable tanks. Call to [facility]. [facility] out of concentrators. This worker to continue to work on home O2 set up for patient who requires 2L for home going. Eleanor Carrington, FOAM RUBBER MIXER, SHORTAGE WORKER
--- NOTE | 2021-12-06 16:53 | CM.ED ---
SOCIAL WORK Home O2 order faxed and called to [facility]. Eleanor Carrington, TRANSITIONAL LIVING SPECIALIST, SUPERVISOR ENGINES ROAD
--- NOTE | 2021-12-06 18:35 | CM.ED ---
SOCIAL WORK Portable O2 delivered to ER. Hr Assistant dropped tank and left without saying anything to staff or this worker. Call to [facility], spoke with Krunal. Krunal reports will get message out, have patient and daughter watch their phones for phone call from driver license reviewing officer. Krunal states someone should have contacted you, I'm sorry about that. Staff, patient, and daughter haris. Eleanor Carrington, GEOSPATIAL INFORMATION SCIENTIST, LABOR ECONOMICS PROFESSOR
--- NOTE | 2021-12-06 20:13 | ED.RN ---
[facility] said that pt should be called at 2002. pt still waiting to hear from them
--- NOTE | 2021-12-06 20:35 | CM.ED ---
SOCIAL WORK Daughter to desk to report they have not been called by [facility]. Call to [facility] again to discuss when concentrator will be delivered as family has not been contacted. Informed worker that we were encouraged not to have patient discharge until contacted by a superintendent drivers. Worker states, I don't know who would have said this. This repairer typewriter informed worker who was last contacted at [facility] after hours was Krunal. Worker stating latest note in system states superintendent drivers will be delivering to home and does not have ETA. Worker states patient can discharge as tank will last 4.5 hours on 2L. Patient and family have contact information for [facility]. Eleanor Carrington, CALENDER TENDER, LIVING SUPERVISOR
--- NOTE | 2021-12-06 21:02 | CM.ED ---
Received call from [facility] delivery assistant who reports unable to be at the home with concentrator until a little before midnight and that he has contacted family. Eleanor Carrington, SUPPLY CHAIN INTERN, SUPERVISOR FACEPIECE LINE
--- NOTE | 2021-12-08 15:49 | CASEMGMT ---
[facility] ED O2 f/u call: Pt discharged from ED 12/06/21 w/O2 @ 2l/m n/c through . YONI OGDEN attempted f/u phone call. No answer. left with no personal information for return call to CM with any questions or concerns. Phone numbers provided. Johann MCPHERSON RN CM
--- NOTE | 2021-12-13 11:48 | CASEMGMT ---
ER Covid Home O2 F/u Call: Call made to patient cell phone listed on demographics, no answer and VM did not identify correct patient- therefore hung up. Went to patient contact on demographic and number listed is same as patient's cell- attempted one more time with answer by patient's dtr Ingrid whom lives with patient. Per Ingrid patient is doing fine and still on the home oxygen (has concentrator and portable tank with [facility]). On 2Lpm with O2 sat range 94-96%. States will desat to 90% without O2. Has made contact with the PCP office but does not have a f/u appointment scheduled yet. States patient has Covid and thinks she is starting to get it but all are doing ok. Phone conversation ended as Ingrid denied any further questions, issues, or concerns. Erinn Pisano, YONICM
--- NOTE | 2021-12-19 15:50 | CASEMGMT ---
[facility] ED COVID Home Oxygen follow-up Call placed to telephone listed on demographics, answered by patient's Cyndy. reports patient is doing well at home, SpO2 91-94% on room air at rest. Patient denies shortness of breath. Patient has had tele-health visit with PCP and was prescribed Doxycycline which he is currently taking as ordered. reports patient is eating and drinking well. Patient's inquires about targeted SpO2 level and informed per this RN ALIN that oxygen should be worn to keep SpO2 greater than 89%, including with activity. states will monitor SpO2 while patient is up and moving in the house as well as at bedtime. Patient can be overheard in the background during telephone call and communicating with RN CM through . Patient's denies further questions or concerns. YONI Ramachandran CM
== END 2021-12-06 20:48 | disposition home or self-care (01) ==
PROVIDERS: Emergency Provider Emergency Medicine; PCP Family Medicine; Visit Provider Emergency Medicine
DX: U07.1 COVID-19 (principal); J12.82 Pneumonia due to coronavirus disease 2019; R09.02 Hypoxemia; I25.10 Atherosclerotic heart disease of native coronary artery without angina pectoris; Z87.891 Personal history of nicotine dependence
CPT/HCPCS: 71045; 80048; 84484; 85025; 87426; 93005; 94640; 96374; 99283; A4216

== ENCOUNTER 2022-02-22 14:41 | Outpatient (CLI) | payer MEDICARE, BC, SELFPAY ==
--- NOTE | 2022-02-22 14:55 | CT_ITS ---
STUDY: CT FACIAL BONES WITHOUT CONTRAST REASON FOR EXAM: Male, 81 years old. SINUSITIS RADIATION DOSAGE (If Supplied By Facility): CTDIvol = ( 28.14 ) mGy, DLP = ( 784.88 ) mGycm TECHNIQUE: The patient was scanned in a multi detector CT scanner. Sagittal and coronal images were reconstructed. Individualized dose optimization techniques were used for this CT. COMPARISON: None. FINDINGS: Atherosclerotic plaque formation at the level of the carotid bifurcations bilaterally. Normal orbital mitchell and orbital contents. Normal nasal bones and anterior nasal spine. Normal facial bones. There is no demonstrated fracture. 4 mm mucosal polyp along the anterior lateral aspect of the left maxillary sinus. Minimal mucosal thickening along the posterior medial aspect of the ethmoid sinus on the left side. CT/Sinus/Facial Bone IMPRESSION: 4 mm mucosal polyp seen along the anterior lateral aspect of the left maxillary sinus. Minimal mucosal thickening along the posterior medial aspect of the left ethmoid sinus. Electronically Signed: Jules Brunson MD at 15:41 EDT ,
== END 2022-02-22 23:59 | disposition home or self-care (01) ==
LOC: CT 14:43
PROVIDERS: PCP Family Medicine; Visit Provider Otolaryngology
DX: J32.9 Chronic sinusitis, unspecified (principal)
CPT/HCPCS: 70486

== ENCOUNTER → 2022-12-11 | Outpatient (CLI) | payer MEDICARE, BC, SELFPAY ==
--- NOTE | 2022-12-11 08:58 | ECHOD_ITS ---
Reason For Study: AFIB Procedure This was a 2D Doppler, Color Flow transthoracic echocardiogram. The study was technically difficult. Patient refused Definity, said had a reaction at another site. Exam performed in department. Left Ventricle Normal LV size. Severe concentric left ventricular hypertrophy. Left ventricular systolic function is hyperdynamic. The estimated ejection fraction is 75 %. Stage 2 diastolic dysfunction. No regional wall motion abnormalities noted. Right Ventricle Normal RV size. Normal systolic function. Atria The left atrium is mildly enlarged. Normal right atrium. No doppler evidence for ASD. Mitral Valve There is no mitral annular calcification. Mild focal mitral valve calcification of the anterior leaflet. Mild (1+) mitral valve insufficiency. Tricuspid Valve Normal tricuspid valve. Mild tricuspid valve insufficiency. Right ventricular systolic pressure estimated to be 37 mmHg. Aortic Valve Stable appearing bioprosthetic aortic valve apparatus. Pulmonic Valve The pulmonic valve is not well visualized. Trivial pulmonic valve insufficiency. Great Vessels Mildly dilated aortic root. Pericardium/Pleural No pericardial effusion. MMode/2D Measurements & Calculations LVIDd: 4.4 cm IVSd: 2.0 cm LVOT diam: 2.3 cm LVIDs: 2.6 cm LVPWd: 1.8 cm LVOT area: 4.3 cm2 RVDd: 4.1 cm FS: 40.7 % Ao root diam: 4.0 cm LAV(MOD-bp): 138.2 ml LA A4 area: 36.9 cm2 LAV(MOD-bp) Indexed: 62.3 ml/m2 LAV(MOD-sp2): 133.4 ml LAV(MOD-sp4): 140.8 ml LA dimension(2D): 4.7 cm RA A4 area: 27.2 cm2 Time Measurements MV dec time: 0.26 sec Doppler Measurements & Calculations MV E max zaid: 114.4 cm/sec Lat Peak E' Zaid: 8.1 cm/sec Med Peak E' Zaid: 6.1 cm/sec MV A max zaid: 119.8 cm/sec E/E' lat: 14.0 E/E' med: 18.7 MV E/A: 0.95 MV dec slope: 437.1 cm/sec2 Ao V2 max: 298.5 cm/sec LV V1 max: 112.1 cm/sec Ao max P.7 mmHg LV V1 max P.0 mmHg Ao V2 mean: 199.9 cm/sec LV V1 mean P.0 mmHg Ao mean P.7 mmHg LV V1 mean: 82.5 cm/sec Ao V2 VTI: 65.3 cm LV V1 VTI: 23.9 cm AV (velocity ratio): 0.37 NATI(I,D): 1.6 cm2 NATI(V,D): 1.6 cm2 SV(LVOT): 102.7 ml PA V2 max: 107.5 cm/sec TR max zaid: 289.2 cm/sec TR max P.5 mmHg ECHO/Echo Complete Interpretation Summary The study was technically difficult. Left ventricular systolic function is hyperdynamic. The estimated ejection fraction is 75 %. Severe concentric left ventricular hypertrophy. The left atrium is mildly enlarged. Mild focal mitral valve calcification of the anterior leaflet. Mild (1+) mitral valve insufficiency. Mild tricuspid valve insufficiency. Stable appearing bioprosthetic aortic valve apparatus. Trivial pulmonic valve insufficiency. Mildly dilated aortic root. Right ventricular systolic pressure estimated to be 37 mmHg. Stage 2 diastolic dysfunction. Ordering Physician: Georgi Osborne Referring Physician: Georgi Osborne Performed By: Sherine Nolen, NENA, RVT
== END | disposition home or self-care (01) ==
PROVIDERS: PCP Family Medicine; Visit Provider Family Medicine
DX: I10 Essential (primary) hypertension (principal); I48.11 Longstanding persistent atrial fibrillation; Z95.2 Presence of prosthetic heart valve
CPT/HCPCS: 93306

== ENCOUNTER → 2022-12-14 | Outpatient (CLI) | payer MEDICARE, BC, SELFPAY ==
--- NOTE | 2022-12-14 11:48 | RAD_ITS ---
INDICATION: TORTICOLLIS SPASMODIC EXAMINATION/TECHNIQUE: X-RAY - XR Spine Cervical 4 or 5 Views COMPARISON: None. FINDINGS: VERTEBRAE: Preserved vertebral body height. No fracture. 3 mm anterolisthesis C4 on C5. Preservation of the normal cervical lordosis. Severe multilevel facet arthropathy. DISCS: Severe multilevel degenerative disc disease and spondylosis. NECK SOFT TISSUES: No prevertebral soft tissue widening. LUNG APICES: Clear. RAD/Cerv Spine 4 or 5 Views IMPRESSION: No evidence of acute fracture. Grade 1 anterolisthesis C4 on C5. Severe multilevel degenerative disc disease and spondylosis. Electronically Signed: Julio C Patrick MD at 16:54 EST ,
== END | disposition home or self-care (01) ==
PROVIDERS: PCP Family Medicine; Visit Provider Family Medicine
DX: M47.812 Spondylosis without myelopathy or radiculopathy, cervical region (principal); G24.3 Spasmodic torticollis; M50.30 Other cervical disc degeneration, unspecified cervical region; M43.12 Spondylolisthesis, cervical region
CPT/HCPCS: 72050

== ENCOUNTER → 2022-12-20 | Outpatient (CLI) | payer MEDICARE, BC, SELFPAY ==
[2022-12-20 14:51] LABS: Anion Gap 9 (5-15); BUN 39 mg/dL (7-18); BUN/Creat Ratio 27.5 RATIO (10-20); Calcium,Total 9.2 mg/dL (8.5-10.1); Chloride 107 mmol/L (98-107); Creatinine, Serum 1.42 mg/dL (0.70-1.30); EST Glomerular Filtration Rate 51 mL/min (>60); Est Glom Filt Rate - Afr Amer 61 mL/min (>60); Glucose 103 mg/dL (74-106); Potassium 4.3 mmol/L (3.5-5.1); Sodium Level 144 mmol/L (136-145)
== END | disposition home or self-care (01) ==
LOC: LAB 13:34
PROVIDERS: PCP Family Medicine; Visit Provider Nurse Practitioner Family
DX: I34.1 Nonrheumatic mitral (valve) prolapse (principal); I10 Essential (primary) hypertension; I25.10 Atherosclerotic heart disease of native coronary artery without angina pectoris; Z95.2 Presence of prosthetic heart valve
CPT/HCPCS: 36415; 80048

== ENCOUNTER 2023-07-05 15:02 | Emergency (ER) | payer MEDICARE, BC, SELFPAY ==
[2023-07-05 15:03] VITALS: BP 211/95; PULSE 78; RESP 18; TEMP 36.6; O2SAT 94; BMI 25.1
[2023-07-05 15:28] LABS: Bacteria 0 SEEN /hpf (None Seen); Mucous, Urine 0 SEEN /hpf (<or=2+); Squamous Epithelial Cells - UA 0 SEEN /hpf (0-5); White Blood Cells 0 SEEN /hpf (0-5)
[2023-07-05 15:47] LABS: Color, Urine Red (Yellow); Glucose, Dipstick Normal (Normal); Ketone-Dipstick 15 mg/dl (Negative); Leukocyte Esterase-Dipstick Negative /ul (Negative); Nitrite-Dipstick Negative (Negative); Occult Blood-Urine 50 /ul (Negative); Protein-Dipstick 500 mg/dl (Negative); Specific Gravity, Urine 1.015 (1.002-1.030); Urine Bilirubin Dipstick Negative (Negative); Urine Clarity Turbid (Clear); Urine Urobilinogen Normal (Normal)
[2023-07-05 16:05] LABS: Red Blood Cells-Urine > 100 SEEN /hpf (0-5)
[2023-07-05 16:21] LABS: Hematocrit 41.5 % (40-54); Hemoglobin 13.1 g/dL (13.0-16.5); Mean Corp Hgb Conc 31.6 g/dL (32-36); Mean Corpuscular Hgb 29.7 pg (27.0-32.0); Mean Corpuscular Volume 94.1 fL (80-94); POSITIVE COUNT YES; POSITIVE DIFFERENTIAL YES; POSITIVE MORPHOLOGY YES; RBC Distribution Width CV 18.8 % (11.6-14.6); RBC Distribution Width SD 65.3 fl (35.1-43.9); Red Blood Count 4.41 M/mm3 (4.6-6.2); White Blood Count 27.4 K/mm3 (4.4-11.0)
[2023-07-05 16:34] LABS: Differential Indicated MANUAL DIFF; Platelet Count 828 K/mm3 (150-450)
[2023-07-05 16:35] LABS: ALB/GLOB Ratio 1.1 RATIO (0.9-2.4); AST(SGOT) 26 U/L (15-37); Alanine Aminotransfer ALT/SGPT 18 U/L (16-61); Albumin, Serum 3.8 g/dL (3.2-5.0); Alkaline Phosphatase 101 U/L (45-117); Anion Gap 7 (5-15); BUN 47 mg/dL (7-18); BUN/Creat Ratio 30.3 RATIO (10-20); Calcium,Total 9.3 mg/dL (8.5-10.1); Chloride 104 mmol/L (98-107); Creatinine, Serum 1.55 mg/dL (0.70-1.30); EST Glomerular Filtration Rate 46 mL/min (>60); Est Glom Filt Rate - Afr Amer 55 mL/min (>60); Estimated Creatinine Clearance 41.25 ml/min; Globulin 3.4 g/dL (2.2-4.2); Glucose 151 mg/dL (74-106); Potassium 4.3 mmol/L (3.5-5.1); Protein, Total 7.2 g/dL (6.4-8.2); Sodium Level 133 mmol/L (136-145)
[2023-07-05 16:38] LABS: International Normalized Ratio 1.4; Prothrombin Time (Protime)PT. 16.8 SECONDS (11.7-14.9)
[2023-07-05 16:39] LABS: Partial Thromboplast Time 36.8 Seconds (24.1-36.2)
--- NOTE | 2023-07-05 16:51 | EX.ED.DYSGE1 ---
HPI History of Present Illness Chief Complaint: Complaint Informant: patient Onset/Context/Timing Onset: Today Context: Sudden Onset Timing: Continuous Quality: Pressure Location: Suprapubic Worsened by: Nothing Relieved by: Nothing Narrative Narrative: Patient presents with hematuria that began today. Patient states she recently had a Johns catheter that was removed. Patient was supposed to learn how to self cath. Patient states he was able to cath himself today and noted some blood in the urine. Patient states he then began having urinary retention and difficulty urinating. Patient admits to some pressure in his lower abdomen. Patient denies any fevers or chills. Patient denies any nausea or vomiting. Patient denies any chest pain or shortness of breath. Patient denies any dysuria. [facility] Medical History (Updated 07/05/23 @ 22:[address] 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 Nonrheumatic aortic (valve) stenosis Nonrheumatic mitral (valve) prolapse Pulmonary valve insufficiency Home Medications tamsulosin 0.4 mg capsule 0.4 mg PO DAILY 01/12/14 [History Last Taken 10/09/17] aspirin 81 mg tablet,delayed release 81 mg PO DAILY@0800 10/08/17 [History Last Taken 10/09/17] clindamycin HCl 300 mg capsule 600 mg PO .COMPLEX PRN 08/15/20 [History Last Taken Unknown] metoprolol tartrate 50 mg tablet 75 mg PO BID 12/14/22 [History Last Taken Unknown] amlodipine 5 mg tablet 5 mg PO DAILY #90 tabs 01/22/23 [Rx Last Taken Unknown] furosemide 40 mg tablet 40 mg PO DAILY 02/22/23 [History Last Taken Unknown] Allergy/AdvReac Type Severity Reaction Status Date / Time Penicillins Allergy Rash Verified 07/05/23 15:04 Sulfa (Sulfonamide Allergy Unknown Verified 07/05/23 15:04 Antibiotics) lisinopril AdvReac Severe Joint Verified 07/05/23 15:04 pain, swelling, vomiting, fatigue Family History Father CAD (coronary artery disease) Mother Breast cancer Brother Suicide Surgical History (Updated 07/05/23 @ 16:[address] 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) History of total hip replacement Social History Smoking Status: Former smoker alcohol intake: never substance use type: does not use caffeine: No what type of physical activity do you participate in: other details: therapy frequency: 3-4 times per week duration: 45-60 minutes/day do you feel safe at home: Yes ROS ROS ED Constitutional Constitutional ED: Denies chills or fever(s) Eyes Eyes: Denies blurry vision or change in vision ENT ENT ED: Denies rhinorrhea or sore throat Cardiovascular Cardiovascular: Denies chest pain or palpitations Respiratory/Chest Respiratory/Chest: Denies cough or dyspnea Gastrointestinal Gastrointestinal: Denies nausea or vomiting Genitourinary Genitourinary ED: Reports hematuria; Denies dysuria Musculoskeletal Musculoskeletal: Denies back pain or neck pain Integumentary Denies abscess or rash Neurologic Neurologic: Denies headache(s) or weakness Allergic/Immunologic Allergic/Immunologic ED: Denies mouth swelling or urticaria EXAM Physical Exam Const Vital Signs: 07/05/23 15:03 07/05/23 20:10 07/05/23 21:54 Temperature 97.8 F Temperature Source Temporal Pulse Rate 78 58 L 71 Respiratory Rate 18 14 14 Blood Pressure 211/95 H 128/75 H 114/58 L Blood Pressure Mean 133 92 76 Pulse Ox 94 92 92 Oxygen Delivery Method Room Air Room Air 07/05/23 22:18 Temperature Temperature Source Pulse Rate 66 Respiratory Rate 14 Blood Pressure 134/65 H Blood Pressure Mean 88 Pulse Ox 92 Oxygen Delivery Method Positive well nourished and well developed General Appearance ED: well developed HEENT Reports moist mucous membranes Neck supple and no JVD Resp normal respiratory effort and clear to auscultation bilaterally Cardio regular rate and regular rhythm Cardio Narrative: A mechanical heart valve was auscultated at the left upper sternal border. GI normal to inspection, nondistended, normoactive bowel sounds Palpation: soft and tender suprapubic; Negative for guarding or rebound tenderness present Extremity normal to inspection General Extremety ED: Negative for edema or tenderness General Extremity: Negative for edema Neuro oriented x3, CN's II-XII intact bilaterally and no sensory deficits noted Sensorium / Orientation: alert Motor Exam: strength 5/5 throughout Psych mental status grossly normal Skin no rashes or lesions noted MDM MDM MDM Narrative Medical decision making narrative: Differential diagnosis includes hemorrhagic cystitis, coagulopathy, anemia, ureteral calculus, and bladder injury. Urinalysis will be obtained to assess for urinary tract infection. CBC will be obtained to assess for leukocytosis and anemia. Comprehensive metabolic profile will be obtained to assess for electrolyte abnormality, renal function, and hepatic function. PT was INR and PTT will be obtained to assess for coagulopathy. CT scan of the abdomen pelvis will be obtained to assess for bladder injury and mass. Lab Data Attestation: I reviewed the patient's lab results. Lab results narrative: Urinalysis was reviewed. There is turbid red urine with a specific gravity of 1.015. Occult blood was 50. There were greater than 100 red blood cells. CBC was reviewed. There is a leukocytosis of 27.4. Hemoglobin and hematocrit are stable. Platelets were elevated at 828. There were 86 neutrophils with 2 bands, 8 monocytes, 2 eosinophils, 1 metamyelocyte, and 1 myelocyte. PT was INR and PTT were reviewed. Pro time was elevated at 16.8. INR is 1.4. PTT was 36.8. Comprehensive metabolic profile was reviewed. BUN was 47 and creatinine was 1.55. Glucose was slightly elevated at 151. Labs: Laboratory Results - last 24 hr 07/05/23 07/05/23 15:23 16:10 WBC 27.4 H RBC 4.41 L Hgb 13.1 Hct 41.5 MCV 94.1 H MCH 29.7 MCHC 31.6 L RDW Std Deviation 65.3 H RDW Coeff of Oliver 18.8 H Plt Count 828 H* MPV 11.0 Neut % (Auto) Not Reportable Absolute Neuts (auto) 24.1 H Absolute Lymphs (auto) 0.00 L Total Counted 100 Neutrophils % (Manual) 86 H Band Neutrophils % 2 Monocytes % (Manual) 8 Eosinophils % (Manual) 2 Metamyelocytes % 1 Myelocytes % 1 H Diff Path Review May foll Platelet Estimate MKD INC Anisocytosis 2+ Microcytosis 1+ Macrocytosis 1+ PT 16.8 H INR 1.4 APTT 36.8 H Sodium 133 L Potassium 4.3 Chloride 104 Carbon Dioxide 22.0 Anion Gap 7 BUN 47 H Creatinine 1.55 H Estim Creat Clear Calc 41.25 Est GFR (MDRD) Af Amer 55 L Est GFR (MDRD) Non-Af 46 L BUN/Creatinine Ratio 30.3 H Glucose 151 H Calcium 9.3 Total Bilirubin 0.60 AST 26 ALT 18 Alkaline Phosphatase 101 Total Protein 7.2 Albumin 3.8 Globulin 3.4 Albumin/Globulin Ratio 1.1 Urine Color Red Urine Clarity Turbid Urine pH 8.0 Ur Specific Cunningham 1.015 Urine Protein 500 H Urine Glucose (UA) Normal Urine Ketones 15 H Urine Occult Blood 50 H Urine Nitrite Negative Urine Bilirubin Negative Urine Urobilinogen Normal Ur Leukocyte Esterase Negative Urine RBC > 100 SEEN Urine WBC 0 SEEN Ur Squamous Epith Cells 0 SEEN Urine Bacteria 0 SEEN Urine Mucus 0 SEEN Radiography Diagnostic Testing: Clinical Impression(s) from Imaging Studies Abdomen/Pelvis CT 07/05/23 16:58 IMPRESSION: 1. Markedly abnormal bladder as detailed above. Cystoscopy is recommended. 2. Prominent secondary hydronephrosis and hydroureter related to the abnormal bladder. 3. Several other less significant chronic findings as above. Electronically Signed: Araslan Saleh MD at 17:54 EDT , CT scan of the abdomen pelvis was obtained. There is hydronephrosis and hydroureter. There is a mass at the base of the bladder that could be blood versus mass. 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 This was interpreted by the radiologist and was also independently reviewed by myself. Treatment and Re-Evaluation :: Patient was given a dose of morphine. The bladder was irrigated using a three-way Johns catheter. Patient and family were advised of his findings. There is no urology coverage here. Patient did have recent urologic procedure at [facility]. I contacted the transfer line at [facility]. They are not excepting any patients except for trauma, STEMI, or stroke. They were not accepting patients to [facility] either. Case was discussed with the [facility] transfer line. Case was discussed with Dr. Ott. He accepted the patient to be transferred to [facility]. Patient and family understand and are agreeable with the plan. All questions were answered. Discharge Plan Triage Chief Complaint: Complaint ED Provider: Bear Harvey Dx/Rx/DC Orders Clinical Impression: Hydronephrosis, Hematuria, Hydroureter, Bladder mass, Leukocytosis, Thrombocytosis Prescriptions: No Action clindamycin HCl 300 mg capsule 600 mg PO .COMPLEX PRN Rx Instructions: 600 mg PO 1 hour prior to dental appointment for aortic valve replacement; PRN; metoprolol tartrate 50 mg tablet 75 mg PO BID furosemide 40 mg tablet 40 mg PO DAILY tamsulosin 0.4 MG capsule 0.4 mg PO DAILY Patient Comments: voiding, prostrate issues aspirin 81 MG tablet 81 mg PO DAILY@0800 amlodipine 5 mg tablet 5 mg PO DAILY Qty: 90 3RF Primary Care Provider: Georgi Osborne Referrals: Georgi Osborne MD [Primary Care Provider] - Disposition Disposition: Acute Care Hospital Discharge Location: [facility]
--- NOTE | 2023-07-05 16:58 | CT_ITS ---
EXAM: CT ABDOMEN AND PELVIS WITHOUT INTRAVENOUS CONTRAST CLINICAL INDICATION: Pain TECHNIQUE: Helically acquired images were obtained of the abdomen and pelvis without intravenous contrast. This CT exam was performed using one or more of the following dose reduction techniques: automated exposure control, adjustment of the mA and/or kV according to patient size, and/or use of iterative reconstruction technique. RADIATION DOSE: CTDIvol = 11.43 mGy, DLP = 636.24 mGy-cm COMPARISON: No relevant prior studies available. FINDINGS: LOWER THORAX: Mild cardiomegaly. Previous CABG. Lung bases are clear. No significant pericardial effusion. ABDOMEN: LIVER: Fatty liver with hepatomegaly. GALLBLADDER AND BILE DUCTS: Unremarkable. No calcified gallstones. No gallbladder distention or wall edema. No intra- or extrahepatic biliary ductal dilation. PANCREAS: Unremarkable. No focal cystic mass. SPLEEN: Mild/moderate splenomegaly. ADRENALS: Unremarkable. No nodules. KIDNEYS AND URETERS: Stable nonobstructing lower pole renal stones on the right largest measuring 7 mm. Numerous bilateral simple renal cysts measuring as much as 6.5 cm across. Both kidneys show marked hydronephrosis and there is marked hydroureter related to marked enlargement of the bladder which is abnormal with a multiloculated contour and numerous diverticuli. There is extensive density in the lower bladder consistent with intraluminal blood or mass. There is a Johns catheter in the bladder. Numerous foci of intraluminal air in the bladder probably from the Johns catheter. STOMACH AND BOWEL: Evaluation of the GI tract is limited by absence of oral contrast. Cannot exclude stomach wall thickening. No dilated loops of bowel or evidence for obstruction. Cannot exclude segmental thickening of the mitchell of the small or large bowel. Cannot exclude enteritis or colitis. Moderate diffuse fecal retention. Appendix within normal limits. PELVIS: APPENDIX: No evidence of acute appendicitis. BLADDER: As above. REPRODUCTIVE: Moderate prostate enlargement. ABDOMEN and PELVIS: INTRAPERITONEAL SPACE: Unremarkable. No ascites or other fluid collection. No free air. BONES/JOINTS: Prominent degenerative changes throughout the spine. No suspicious lytic or blastic abnormality. SOFT TISSUES: Unremarkable. No discrete abdominal or pelvic wall hernia. VASCULATURE: Marked calcified plaque of the aorta and aortic branches without aneurysm. LYMPH NODES: Unremarkable. No enlarged lymph nodes. CT/Abdomen/Pelvis without Cont IMPRESSION: 1. Markedly abnormal bladder as detailed above. Cystoscopy is recommended. 2. Prominent secondary hydronephrosis and hydroureter related to the abnormal bladder. 3. Several other less significant chronic findings as above. Electronically Signed: Arsalan Saleh MD at 17:54 EDT ,
[2023-07-05 17:01] LABS: Anisocytosis 2+; Eosinophil 2 % (0-5); Macrocytosis 1+; Metamyelocyte 1 % (0-1); Microcytosis 1+; Monocyte 8 % (0-10); Myelocyte 1 % (0-0); Neutrophil-Band 2 % (0-5); Neutrophil-Segmented 86 % (47-70); Platelet Estimate MKD INC (ADEQ); Total Cells Counted 100 (MANUAL DIFF)
[2023-07-05 17:02] LABS: Absolute Neutrophil Count 24.1 X10^3/uL (2.0-7.7)
[2023-07-05] MEDS: Morphine 4 MG/ML Syringe IV ×2 (17:02→21:46)
--- NOTE | 2023-07-05 19:02 | CM.ED ---
Social Work SW performed chart review, AD documents not on file. SW met with patient and patient's daughter and introduced self and role as [facility] SW. Patient agreeable to speak to SW with his daughter present. SW engaged patient in conversation regarding Advanced Directives. Patient reports his HCPOA and LW is completed; HCPOA are his , daughter and son. SW encouraged patient to bring documents in so a copy can be placed on patient's chart. Patient voiced understanding and reports no other needs. Taryn Guzman MSW, MARIFER
[2023-07-05 20:10] VITALS: BP 128/75; PULSE 58; RESP 14; O2SAT 92
[2023-07-05 21:54] VITALS: BP 114/58; PULSE 71; RESP 14; O2SAT 92
[2023-07-05 22:18] VITALS: BP 134/65; PULSE 66; RESP 14; O2SAT 92
--- NOTE | 2023-07-06 02:09 | EKG12_ITS ---
Test Reason : Dysrhythmia Blood Pressure : / mmHG Vent. 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
--- NOTE | 2023-07-06 02:11 | ED.RN ---
PT WAS BROUGHT BACK TO ER [facility] DUE TO LOW BLOOD PRESSURE. CREW CALLED [facility] AND REPORTED THAT THEY ARE NOT TO TAKE PT THAT HE NEEDED TO BE [facility]. PHONE CALL PLACED TO PHYSICIAN'S AND [facility] REQUESTED. ETA OF AFTER 7AM GIVEN. NICK VILLEGAS CALLED.
[2023-07-06 02:17] VITALS: BP 137/67; PULSE 67; RESP 16; O2SAT 97
--- NOTE | 2023-07-06 02:58 | ED.RN ---
ATB NOT ADMINISTERED, [facility]UL[facility] AT BEDSIDE READY TO TAKE PT. REPEAT BLOOD PRESSURE WITH MAP >
[2023-07-06 03:07] LABS: Lactic Acid 2.2 mmol/L (0.4-1.9)
[2023-07-06 06:23] LABS: Reflex Lactate? Y
[2023-07-08 12:20] LABS: Pathologist Review Reviewed
== END 2023-07-06 03:00 | disposition short-term general hospital (02) ==
PROVIDERS: Emergency Medicine; Emergency Provider Emergency Medicine; PCP Family Medicine; Visit Provider Emergency Medicine
DX: N13.4 Hydroureter (principal); J44.9 Chronic obstructive pulmonary disease, unspecified; N32.9 Bladder disorder, unspecified; I25.10 Atherosclerotic heart disease of native coronary artery without angina pectoris; Z87.891 Personal history of nicotine dependence; D72.829 Elevated white blood cell count, unspecified; N13.30 Unspecified hydronephrosis; R31.9 Hematuria, unspecified; I10 Essential (primary) hypertension; Z79.899 Other long term (current) drug therapy; Z79.82 Long term (current) use of aspirin; Z95.2 Presence of prosthetic heart valve; Z96.649 Presence of unspecified artificial hip joint; D75.839 Thrombocytosis, unspecified
CPT/HCPCS: 51702; 74176; 80053; 81001; 83605; 85025; 85610; 85730; 93005; 99285; J7030; J7050; A4216

== ENCOUNTER 2023-07-20 09:40 | Emergency (ER) | payer MEDICARE, BC, SELFPAY ==
[2023-07-20] VITALS (11 sets, daily range): BP systolic 122–160; BP diastolic 54–92; PULSE 58–117; RESP 12–23; TEMP 37.3; O2SAT 94–96; BMI 27.5
--- NOTE | 2023-07-20 09:53 | EDS_ITS ---
HPI History of Present Illness Chief Complaint: Chest Pain Informant: patient Onset/Context/Timing Onset: Hours (4) Context: Sudden Onset Timing: Continuous Quality: Dull Location: Upper chest Worsened by: Nothing Relieved by: Nothing Narrative Narrative: Patient presents with chest pain that began approximately 4 hours prior to arrival. Patient states that has been waxing and waning. Patient states it was across his upper chest. Patient states his pain has resolved since he arrived in the emergency department. Patient describes his pain as dull. Patient states nothing makes it better nothing makes it worse. Patient does admit to some shortness of breath. Patient denies any cough or fever. Patient denies any nausea or vomiting. Patient denies any diaphoresis. Patient was admitted to [facility] recently for hematuria and anemia. While at [facility] area the patient developed atrial fibrillation and a DVT in his right leg. Patient was started on Eliquis at that time. Patient also had a recent bone marrow biopsy to try to determine the cause of his anemia. [facility] Medical History Atherosclerosis of coronary artery of [place] heart without angina pectoris Atrial fibrillation COPD (chronic obstructive pulmonary disease) DVT (deep venous thrombosis) Gout HTN (hypertension) [facility] (current) use of anticoagulants Nonrheumatic aortic (valve) stenosis Nonrheumatic mitral (valve) prolapse Pulmonary valve insufficiency Home Medications tamsulosin 0.4 mg capsule 0.4 mg PO DAILY 01/12/14 [History Last Taken 10/09/17] aspirin 81 mg tablet,delayed release 81 mg PO DAILY@0800 10/08/17 [History Last Taken 10/09/17] clindamycin HCl 300 mg capsule 600 mg PO .COMPLEX PRN 08/15/20 [History Last Taken Unknown] metoprolol tartrate 50 mg tablet 75 mg PO BID 12/14/22 [History Last Taken Unknown] amlodipine 5 mg tablet 5 mg PO DAILY #90 tabs 01/22/23 [Rx Last Taken Unknown] furosemide 40 mg tablet 40 mg PO DAILY 02/22/23 [History Last Taken Unknown] Allergy/AdvReac Type Severity Reaction Status Date / Time Penicillins Allergy Rash Verified 07/20/23 09:46 Sulfa (Sulfonamide Allergy Unknown Verified 07/20/23 09:46 Antibiotics) lisinopril AdvReac Severe Joint Verified 07/20/23 09:46 pain, swelling, vomiting, fatigue Family History Father CAD (coronary artery disease) Mother Breast cancer Brother Suicide Surgical History H/O aortic valve replacement (11/08/17) 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) History of total hip replacement Social History Smoking Status: Former smoker alcohol intake: never substance use type: does not use caffeine: No what type of physical activity do you participate in: other details: therapy frequency: 3-4 times per week duration: 45-60 minutes/day do you feel safe at home: Yes ROS ROS ED Constitutional Constitutional ED: Denies chills or fever(s) Eyes Eyes: Denies blurry vision or change in vision ENT ENT ED: Denies rhinorrhea or sore throat Cardiovascular Cardiovascular: Reports chest pain; Denies palpitations Respiratory/Chest Respiratory/Chest: Reports dyspnea; Denies cough Gastrointestinal Gastrointestinal: Denies abdominal pain, nausea or vomiting Genitourinary Genitourinary ED: Denies dysuria or hematuria Musculoskeletal Musculoskeletal: Denies back pain or neck pain Integumentary Denies abscess or rash Neurologic Neurologic: Denies headache(s) or weakness Hematologic/Lymphatic Hematologic/Lymphatic: Reports anemia Allergic/Immunologic Allergic/Immunologic ED: Denies mouth swelling or urticaria EXAM Physical Exam Const Vital Signs: 07/20/23 09:41 07/20/23 09:46 07/20/23 10:07 Temperature 99.2 F H Temperature Source Temporal Pulse Rate 117 H Respiratory Rate 23 H Blood Pressure 160/92 H Blood Pressure Mean 114 Pulse Ox 94 Oxygen Delivery Method Nasal Cannula Nasal Cannula Oxygen Flow Rate (L/min) 4 4 07/20/23 10:40 07/20/23 11:34 07/20/23 11:40 Temperature Temperature Source Pulse Rate 73 90 82 Respiratory Rate 18 15 15 Blood Pressure 122/54 H Blood Pressure Mean 76 Pulse Ox 94 Oxygen Delivery Method Nasal Cannula Oxygen Flow Rate (L/min) 4 07/20/23 11:50 07/20/23 12:00 07/20/23 12:10 Temperature Temperature Source Pulse Rate 73 59 L 58 L Respiratory Rate 16 12 17 Blood Pressure Blood Pressure Mean Pulse Ox Oxygen Delivery Method Oxygen Flow Rate (L/min) 07/20/23 13:02 Temperature Temperature Source Pulse Rate 61 Respiratory Rate 21 H Blood Pressure Blood Pressure Mean Pulse Ox 96 Oxygen Delivery Method Nasal Cannula Oxygen Flow Rate (L/min) Positive well nourished and well developed General Appearance ED: well developed and NAD HEENT Reports moist mucous membranes Neck supple and no JVD Resp normal respiratory effort and clear to auscultation bilaterally Cardio Rate: tachycardic Rhythm: abnormal rhythm irregularly irregular GI non-tender and non-distended Auscultation: normoactive bowel sounds Palpation: soft Extremity normal to inspection General Extremety ED: Negative for tenderness Neuro oriented x3, CN's II-XII intact bilaterally and no sensory deficits noted Sensorium / Orientation: alert Motor Exam: strength 5/5 throughout Psych mental status grossly normal MDM MDM MDM Narrative Medical decision making narrative: Differential diagnosis includes cardiac dysrhythmia, cardiac ischemia, electrolyte abnormality, pulmonary embolism, congestive heart failure, anemia, GERD, and musculoskeletal pain. EKG will be obtained to assess for cardiac dysrhythmia and cardiac ischemia. CTA of the chest will be obtained to assess for pulmonary embolism, pneumonia, and congestive heart failure. CBC will be obtained to assess for leukocytosis and anemia. Basic metabolic profile will be obtained to assess for electrolyte abnormality and renal function. PT with INR and PTT will be obtained to assess for coagulopathy. High-sensitivity troponin will be obtained to assess for cardiac ischemia. 2-hour repeat high-sensitivity troponin will be obtained to assess for ongoing cardiac ischemia. Lab Data Attestation: I reviewed the patient's lab results. Lab results narrative: CBC was reviewed. There is a leukocytosis of 19.7. This was actually improved from previous result. Hemoglobin was 8.7 and hematocrit was 30.3. Labs from [facility] were reviewed from yesterday. Hemoglobin was 7.6 and hematocrit was 25.5 at that time. Platelets were 548 which are improved from previous result. PT with INR and PTT were reviewed. Pro time was 20.5 and INR was 1.7. PTT was slightly elevated at 41.0. Basic metabolic profile was reviewed. Glucose was 171. Anion gap was normal. Electrolytes were normal. High-sensitivity troponin was reviewed and was 118. 2-hour repeat high- sensitivity troponin was reviewed and was 115. Previous labs from [facility] were reviewed and his troponin yesterday was 247. Labs: Laboratory Results - last 24 hr 07/20/23 07/20/23 10:11 12:27 WBC 19.7 H RBC 3.09 L Hgb 8.7 L Hct 30.3 L MCV 98.1 H MCH 28.2 MCHC 28.7 L RDW Std Deviation 65.6 H RDW Coeff of Oliver 18.7 H Plt Count 548 H MPV 12.2 H Immature Gran % (Auto) 2.500 H Neut % (Auto) 83.6 H Lymph % (Auto) 4.7 L [place] % (Auto) 5.6 Eos % (Auto) 1.2 Baso % (Auto) 2.4 H Absolute Neuts (auto) 16.4 H Absolute Lymphs (auto) 0.93 Nucleated RBC % 0.1 Differential Comment SCANNED Anisocytosis 2+ Microcytosis 1+ Macrocytosis 1+ PT 20.5 H INR 1.7 APTT 41.0 H Sodium 138 Potassium 4.7 Chloride 105 Carbon Dioxide 23.0 Anion Gap 10 BUN 28 H Creatinine 0.98 Estim Creat Clear Calc 65.24 Est GFR (MDRD) Af Amer 93 Est GFR (MDRD) Non-Af 77 BUN/Creatinine Ratio 28.5 H Glucose 171 H Calcium 8.5 Troponin I High Sens 118 H 115 H Radiography Diagnostic Testing: Clinical Impression(s) from Imaging Studies Chest CTA 07/20/23 10:07 IMPRESSION: 1. No CTA evidence of pulmonary thromboemboli, thoracic aortic aneurysm or dissection. 2. Extensive calcified plaques in all 3 vessel coronary arteries but patient has had CABG procedure. 3. Radiopaque aortic valve prosthesis in place. 4. Paraseptal cysts in the upper lobes and fewer paraseptal cysts in the lower lobes. 5. Mild diffuse peripheral peribronchial thickening. 6. 1 cm hypodense lesion in segment 2 of the left hepatic lobe near the surface has CT number of 4.9 Hounsfield units. This is simple cyst and unchanged when compared to 07/05/2023 CT abdomen. 7. 5.7 cm right renal hypodense lesion has CT number of 14 Hounsfield units. This is simple cyst and unchanged when compared to CT abdomen and pelvis of 07/05/2023. Electronically Signed: Samy Basilio MD at 12:05 EDT , Because of the recent DVT and chest pain, CTA of the chest was obtained. There is no pulmonary embolism or aortic dissection. There are calcified plaques in 3 vessel coronary arteries. There is mild diffuse peripheral peribronchial thickening. This was interpreted by the radiologist and was also independently reviewed by myself. EKG Initial EKG: Attestation: I personally reviewed and interpreted this EKG as follows: Interpretation: Atrial Fibrillation (119) and Non-Specific ST Changes Comments: EKG was obtained. On my independent interpretation it shows atrial fibrillation with a rate of 119. QRS interval was normal at 88 ms. QTc interval was 441 ms. There is borderline left axis deviation at -20. There are nonspecific ST-T wave changes. There is left ventricular hypertrophy noted. Prior EKG tracings: available for review Prior: Unchanged (Compared to EKG dated 07/06/2023, the atrial fibrillation is new however there are no ST-T changes) Treatment and Re-Evaluation :: Patient is feeling better on reevaluation. Patient had no further chest pain here. Patient and family were advised of his findings. Patient had cardiac consultation while he was at [facility] and they did not recommend any further intervention or testing. Patient and family are agreeable with this. Patient was instructed to continue his medications as previously prescribed. Patient will be discharged and instructed to follow-up with his primary care physician in 5 to 7 days. Patient and family understand and are agreeable with the plan. All questions were answered. Discharge Plan Triage Chief Complaint: Chest Pain ED Provider: Bear Harvey Dx/Rx/DC Orders Clinical Impression: Anemia, Chest pain, HTN (hypertension) Instructions: ED Anemia, Type Not Specified (Adult), ED Chest Pain, Uncertain Cause Prescriptions: No Action clindamycin HCl 300 mg capsule 600 mg PO .COMPLEX PRN Rx Instructions: 600 mg PO 1 hour prior to dental appointment for aortic valve replacement; PRN; metoprolol tartrate 50 mg tablet 75 mg PO BID furosemide 40 mg tablet 40 mg PO DAILY tamsulosin 0.4 MG capsule 0.4 mg PO DAILY Patient Comments: voiding, prostrate issues aspirin 81 MG tablet 81 mg PO DAILY@0800 amlodipine 5 mg tablet 5 mg PO DAILY Qty: 90 3RF Primary Care Provider: Georgi Osborne Referrals: Georgi Osborne MD [Primary Care Provider] - 5-7 Days Disposition Disposition: Home, Self Care
--- NOTE | 2023-07-20 10:07 | CT_ITS ---
EXAM: CT ANGIOGRAPHY CHEST WITHOUT AND WITH INTRAVENOUS CONTRAST CLINICAL INDICATION: Chest pain. Aortic valve replacement. Hypertension. COPD. CABG. A. fib. TECHNIQUE: Helically acquired angiography images were obtained of the chest without and with intravenous contrast. This CT exam was performed using one or more of the following dose reduction techniques: automated exposure control, adjustment of the mA and/or kV according to patient size, and/or use of iterative reconstruction technique. MIP reconstructed images were created and reviewed. CONTRAST: IV 100mL [id number] RADIATION DOSE: CTDIvol = 10.95 mGy, DLP = 350.89 mGy-cm COMPARISON: CT abdomen and pelvis without contrast 07/05/2023. No prior CT chest for comparison. FINDINGS: PULMONARY ARTERIES: Less than optimal contrast enhancement of the peripheral pulmonary arteries. No suspicious pulmonary thromboemboli. Normal in caliber. AORTA: Calcified plaques in the ascending aorta, transverse thoracic aorta and descending thoracic aorta. No thoracic aortic aneurysm. No evidence of dissection. GREAT VESSELS OF AORTIC ARCH: Unremarkable. Normal in caliber. No evidence of dissection. LUNGS AND PLEURAL SPACES: Multiple paraseptal cysts in the upper lobes. Fewer paraseptal cysts in the lower lobes. Peripheral peribronchial wall thickening of the lower lobes and upper lobes. Minimal subpleural atelectasis in the posterior lung bases. No mass. No pneumothorax. HEART: Mild cardiomegaly. Normal pericardium. Radiopaque aortic valve prosthesis. Heavily calcified plaques of the left main coronary artery bifurcation, the LAD branch, circumflex branch and right coronary artery. MEDIASTINUM: Unremarkable. No mediastinal or hilar adenopathy. Esophagus is unremarkable. No hiatal hernia. THYROID: Unremarkable. No thyroid lesions. BONES/JOINTS: Unremarkable. No suspicious lytic or blastic abnormality. LIVER: 1 cm hypodense lesion in segment 2 of the left hepatic lobe near the surface has CT number of 4.9 Hounsfield units. This is cyst. KIDNEYS AND URETERS: 5.7 cm right renal hypodense lesion with CT number of [address]/CTA Chest W/WO Contrast IMPRESSION: 1. No CTA evidence of pulmonary thromboemboli, thoracic aortic aneurysm or dissection. 2. Extensive calcified plaques in all 3 vessel coronary arteries but patient has had CABG procedure. 3. Radiopaque aortic valve prosthesis in place. 4. Paraseptal cysts in the upper lobes and fewer paraseptal cysts in the lower lobes. 5. Mild diffuse peripheral peribronchial thickening. 6. 1 cm hypodense lesion in segment 2 of the left hepatic lobe near the surface has CT number of 4.9 Hounsfield units. This is simple cyst and unchanged when compared to 07/05/2023 CT abdomen. 7. 5.7 cm right renal hypodense lesion has CT number of 14 Hounsfield units. This is simple cyst and unchanged when compared to CT abdomen and pelvis of 07/05/2023. Electronically Signed: Samy Basilio MD at 12:05 EDT ,
--- NOTE | 2023-07-20 10:07 | EKG12_ITS ---
Test Reason : afib Blood Pressure : / mmHG Vent. Rate : 119 BPM Atrial Rate : 119 BPM P-R Int : 232 ms QRS Dur : 088 ms QT Int : 314 ms P-R-T Axes : 000 -26 108 degrees QTc Int : 441 ms Critical Test Result: STEMI Sinus tachycardia with 1st degree A-V block with Premature atrial complexes Left ventricular hypertrophy with repolarization abnormality ( [place] product ) Cannot rule out Septal infarct , age undetermined Confirmed by MARK BROWN ([id number]), proposal editor MEREDITH BARONE ([id number]) on 08/06/2023 11:21:10 AM Referred By: S Confirmed By:MARK BROWN
[2023-07-20 10:18] LABS: Absolute Lymphocyte Count 0.93 X10^3/uL (0.83-4.51); Absolute Neutrophil Count 16.4 X10^3/uL (2.0-7.7); Basophil# 0.48 X10^3/uL; Basophil% 2.4 % (0-1); Eosinophil# 0.24 X10^3/uL; Eosinophils% 1.2 % (0-5); Hematocrit 30.3 % (40-54); Hemoglobin 8.7 g/dL (13.0-16.5); Lymphocyte # 0.93 X10^3/ul (0.83-4.51); Lymphocyte % 4.7 % (19-41); Mean Corp Hgb Conc 28.7 g/dL (32-36); Mean Corpuscular Hgb 28.2 pg (27.0-32.0); Mean Corpuscular Volume 98.1 fL (80-94); Mean Platelet Vol. 12.2 fl (6.2-12.0); Monocyte% 5.6 % (0-10); NRBC Flagged by Analyzer 0.1 % (0-5); Neutrophil # 16.43 X10^3/uL (2.7-7.7); Neutrophil % 83.6 % (47-70); POSITIVE MORPHOLOGY YES; Platelet Count 548 K/mm3 (150-450); RBC Distribution Width CV 18.7 % (11.6-14.6); RBC Distribution Width SD 65.6 fl (35.1-43.9); Red Blood Count 3.09 M/mm3 (4.6-6.2); White Blood Count 19.7 K/mm3 (4.4-11.0)
[2023-07-20 10:23] LABS: Differential Indicated SCAN CRITERIA MET
[2023-07-20 10:27] LABS: International Normalized Ratio 1.7; Prothrombin Time (Protime)PT. 20.5 SECONDS (11.7-14.9)
[2023-07-20 10:44] LABS: Anion Gap 10 (5-15); BUN 28 mg/dL (7-18); BUN/Creat Ratio 28.5 RATIO (10-20); Calcium,Total 8.5 mg/dL (8.5-10.1); Chloride 105 mmol/L (98-107); Creatinine, Serum 0.98 mg/dL (0.70-1.30); EST Glomerular Filtration Rate 77 mL/min (>60); Est Glom Filt Rate - Afr Amer 93 mL/min (>60); Estimated Creatinine Clearance 65.24 ml/min; Glucose 171 mg/dL (74-106); Potassium 4.7 mmol/L (3.5-5.1); Sodium Level 138 mmol/L (136-145); Troponin-I HS (w/2H Reflex) 118 pg/mL (3.0-78.0)
[2023-07-20 10:53] LABS: Anisocytosis 2+; Differential Comment SCANNED; Microcytosis 1+
[2023-07-20 10:54] LABS: Macrocytosis 1+
--- NOTE | 2023-07-20 11:36 | ED.RN ---
pt's lunchroom monitor rhythm looks to have a widened complex at this time, pt sleeping and declines any change in status. strip printed and dr. trimble updated
[2023-07-20 12:15] LABS: Reflex Troponin-HS? (from REC) Y
[2023-07-20 12:50] LABS: Troponin-I HS 115 pg/mL (3.0-78.0)
== END 2023-07-20 16:02 | disposition home or self-care (01) ==
PROVIDERS: Emergency Provider Emergency Medicine; PCP Family Medicine; Visit Provider Emergency Medicine
DX: R07.9 Chest pain, unspecified (principal); J44.9 Chronic obstructive pulmonary disease, unspecified; D64.9 Anemia, unspecified; Z87.891 Personal history of nicotine dependence; I25.10 Atherosclerotic heart disease of native coronary artery without angina pectoris; I10 Essential (primary) hypertension; Z79.899 Other long term (current) drug therapy; Z79.82 Long term (current) use of aspirin; Z95.2 Presence of prosthetic heart valve; Z96.649 Presence of unspecified artificial hip joint
CPT/HCPCS: 71275; 80048; 84484; 85025; 85610; 85730; 93005; 99285; Q9967